=== PATIENT | female | born 1955 | race Caucasian/White ===

== ENCOUNTER → 2016-08-07 | Outpatient (CLI) | payer OTHER ==
[2016-08-07 20:47] LABS: ALT 31 U/L (9-52); AST 24 U/L (14-36); Alkaline Phosphatase 74 U/L (38-126); Anion Gap 13 mmol/L; Blood Urea Nitrogen 21 mg/dL (7-17); Calcium 9.7 mg/dL (8.4-10.2); Carbon Dioxide 25 mmol/L (22-30); Chloride 101 mmol/L (98-107); Cholesterol 182 mg/dL (<200); Glucose 241 mg/dL (74-99); HDL Cholesterol 37 mg/dL (40-60); Non-African American GFR(MDRD) 54 (>60 ml/min/1.73 sqM); Potassium 4.2 mmol/L (3.5-5.1); Sodium 139 mmol/L (137-145); Total Bilirubin 0.6 mg/dL (0.2-1.3); Total Protein 7.8 g/dL (6.3-8.2); Triglycerides 335 mg/dL (<150)
[2016-08-07 21:22] LABS: Hemoglobin A1C 8.4 % (4.2-6.1)
== END | disposition home or self-care (01) ==
LOC: MMGSC 11:10
PROVIDERS: ATTEND Family Medicine
DX: E11.9 Type 2 diabetes mellitus without complications (principal); E78.5 Hyperlipidemia, unspecified
CPT/HCPCS: 36415; 80053; 80061; 82043; 83036

== ENCOUNTER → 2017-08-19 | Outpatient (CLI) | payer OTHER ==
[2017-08-19 18:27] LABS: Basophils % (A) 0 %; Eosinophils # (A) 0.2 k/uL (0-0.7); Eosinophils % (A) 3 %; HCT 38.9 % (34.0-46.0); HGB 12.8 gm/dL (11.4-16.0); Lymphocytes # (A) 1.6 k/uL (1.0-4.8); Lymphocytes % (A) 27 %; MCH 29.1 pg (25.0-35.0); MCHC 32.9 g/dL (31.0-37.0); MCV 88.7 fL (80.0-100.0); Mean Platelet Volume 8.4; Monocytes # (A) 0.3 k/uL (0-1.0); Monocytes % (A) 6 %; Neutrophils # (A) 3.8 k/uL (1.3-7.7); Neutrophils % (A) 63 %; Platelet Count 246 k/uL (150-450); RBC 4.38 m/uL (3.80-5.40); RDW 12.6 % (11.5-15.5)
[2017-08-19 18:33] LABS: Albumin 4.2 g/dL (3.5-5.0); Calcium 9.5 mg/dL (8.4-10.2); Total Bilirubin 0.4 mg/dL (0.2-1.3); Total Protein 7.4 g/dL (6.3-8.2)
[2017-08-20 02:07] LABS: Hemoglobin A1C 10.9 % (4.0-6.0)
== END | disposition home or self-care (01) ==
LOC: MMGSC 09:21
PROVIDERS: ATTEND Family Medicine
DX: E11.9 Type 2 diabetes mellitus without complications (principal); I10 Essential (primary) hypertension; E78.5 Hyperlipidemia, unspecified
CPT/HCPCS: 36415; 80053; 80061; 82043; 82570; 83036; 84443; 85025

== ENCOUNTER → 2017-09-10 | Outpatient (CLI) | payer OTHER ==
--- NOTE | 2017-09-10 10:14 | FL ---
EXAMINATION TYPE: FL UGI air DATE OF EXAM: 09/10/2017 COMPARISON: NONE HISTORY: Reflux, nausea, vomiting and dysphagia TECHNIQUE: A double contrast UGI study is performed. Pt given 2oz EZHD,2oz EZ Paque, 1pjg EZGas. 1.5 4min fluoro time with 39 images saved. FINDINGS: The esophagus shows normal motility and emptying into the stomach. No stricture is identified. A smal l hiatal hernia is present with real-time visualization of moderate reflux of contrast from the hiata l hernia to the mid thoracic esophagus. Once the contrast passes the diaphragmatic hiatus into the ga stric fundus no reflux was visualized with the Valsalva maneuver in the gravity independent position. The stomach shows normal distensibility, peristalsis, and mucosal folds. No evidence of any mass or ulcer disease. The duodenal bulb, sweep, and proximal small bowel loops are unremarkable. IMPRESSION: Small hiatal hernia with reflux of contrast to the level of mid thoracic esophagus (moder ate grade) from stasis of residual contrast within the hiatal hernia.
== END ==
LOC: RADFLMAIN 08:58
PROVIDERS: ATTEND Family Medicine
DX: K44.9 Diaphragmatic hernia without obstruction or gangrene (principal); R13.10 Dysphagia, unspecified
CPT/HCPCS: 74246

== ENCOUNTER → 2017-10-22 | Outpatient (CLI) | payer OTHER ==
--- NOTE | 2017-10-25 11:05 | MM ---
Reason for exam: screening (asymptomatic). Last mammogram was performed 2 years and 2 months ago. History: Patient is postmenopausal and has history of colon cancer at age 40. Family history of breast cancer in cousin. Physical Findings: A clinical breast exam by your physician is recommended on an annual basis and results should be correlated with mammographic findings. MG Screening Mammo w CAD Bilateral CC and MLO view(s) were taken. Prior study comparison: August 28, 2015, bilateral MG screening mammo w CAD. November 25, 2011, bilateral digital screening mammo w/CAD. There are scattered fibroglandular densities. Finding: There are typically benign round, skin calcifications in both breasts. No significant changes in finding since August 28, 2015 and November 25, 2011. ASSESSMENT: Benign, BI-RAD 2 RECOMMENDATION: Routine screening mammogram of both breasts in 1 year.
== END | disposition home or self-care (01) ==
LOC: RADMAMWWP 10:17
PROVIDERS: ATTEND Family Medicine
DX: Z12.31 Encounter for screening mammogram for malignant neoplasm of breast (principal)
CPT/HCPCS: 77067

== ENCOUNTER → 2017-11-22 | Outpatient (CLI) | payer OTHER ==
[2017-11-22 12:35] LABS: Albumin 4.6 g/dL (3.5-5.0); Potassium 4.2 mmol/L (3.5-5.1); Total Bilirubin 0.3 mg/dL (0.2-1.3); Total Protein 7.7 g/dL (6.3-8.2)
[2017-11-22 21:15] LABS: Hemoglobin A1C 6.2 % (4.0-6.0)
== END | disposition home or self-care (01) ==
LOC: LABWHC1 11:45
PROVIDERS: ATTEND Internal Medicine
DX: E55.9 Vitamin D deficiency, unspecified (principal); E11.65 Type 2 diabetes mellitus with hyperglycemia; E78.5 Hyperlipidemia, unspecified
CPT/HCPCS: 36415; 80053; 80061; 82306; 83036

== ENCOUNTER → 2018-03-15 | Outpatient (CLI) | payer OTHER ==
[2018-03-15 21:45] LABS: Hemoglobin A1C 5.7 % (4.0-6.0)
[2018-03-16 11:39] LABS: Albumin 4.6 g/dL (3.80-4.90); Anion Gap 14.1 mmol/L (4.00-12.00); Calcium 9.6 mg/dL (8.7-10.3); Carbon Dioxide 20.9 mmol/L (21.6-31.8); Globulin 2.3 g/dL (2.1-3.7); Potassium 4.1 mmol/L (3.5-5.5); Total Bilirubin 0.3 mg/dL (0.2-1.2); Total Protein 6.9 g/dL (6.2-8.2)
== END | disposition home or self-care (01) ==
LOC: LABWHC1 14:54
PROVIDERS: ATTEND Internal Medicine
DX: E11.65 Type 2 diabetes mellitus with hyperglycemia (principal); E11.22 Type 2 diabetes mellitus with diabetic chronic kidney disease; N18.3 Chronic kidney disease, stage 3 (moderate)
CPT/HCPCS: 36415; 80053; 83036

== ENCOUNTER → 2018-05-10 | Day surgery (SDC) | payer OTHER ==
[2018-05-05 12:47] VITALS: BMI 26.9
[~2018-05-10] MED LIST: LACTATED RINGERS 1,000 ML IV SCH; LIDOCAINE 1% 20 ML VIAL (10MG/ML) FOR IV START INTRADERMA PRN; PROPOFOL 10 MG/ML 20 ML VIAL IV ONE
[2018-05-10 08:42] VITALS: RESP 16; TEMP 97.7
[2018-05-10 08:48] LABS: Glucose,Whole Blood 100 mg/dL (75-99)
--- NOTE | 2018-05-10 09:02 | P.GSHP ---
History of Present Illness H&P Date: 05/10/18 Chief Complaint: GERD, dysphagia This is a 63-year-old female with a history of a hiatal hernia. Patient's complaints of dysphagia. Her recent esophagram shows evidence of a hiatal hernia and reflux to the level of the mid esophagus. Past Medical History Past Medical History: Cancer, Diabetes Mellitus, GERD/Reflux, Hyperlipidemia, Hypertension, Osteoarthritis (OA) Additional Past Medical History / Comment(s): COLON CANCER History of Any Multi-Drug Resistant Organisms: None Reported Past Surgical History: Adenoidectomy, Bowel Resection, Cholecystectomy, Tubal Ligation Additional Past Surgical History / Comment(s): COLONOSCOPY Past Anesthesia/Blood Transfusion Reactions: Motion Sickness Smoking Status: Never smoker - Past Family History Mother Family Medical History: Cancer Additional Family Medical History / Comment(s): LUNG CANCER Medications and Allergies Home Medications Medication Instructions Recorded Confirmed Type Aspirin 81 mg PO DAILY 08/23/15 05/05/18 History Citalopram Hydrobromide [CeleXA] 20 mg PO DAILY 08/23/15 05/05/18 History Lisinopril-Hctz 20-25 mg 1 tab PO DAILY 08/23/15 05/05/18 History [Zestoretic 20-25] Lovastatin [Mevacor] 40 mg PO HS 08/23/15 05/05/18 History Ranitidine HCl [Zantac] 300 mg PO DAILY 08/23/15 05/05/18 History clonazePAM [KlonoPIN] 0.5 mg PO DAILY 08/23/15 05/05/18 History metFORMIN HCL 1,000 mg PO DAILY 08/23/15 05/05/18 History Ergocalciferol [Vitamin D2] 50,000 unit PO TH 05/05/18 05/05/18 History Gabapentin [Neurontin] 600 mg PO BID 05/05/18 05/05/18 History Pioglitazone [Actos] 30 mg PO DAILY 05/05/18 05/05/18 History Allergies Allergy/AdvReac Type Severity Reaction Status Date / Time No Known Allergies Allergy Verified 05/10/18 08:40 Surgical - Exam Vital Signs Temp Pulse Resp BP Pulse Ox 97.7 F 84 16 98/55 99 05/10/18 08:41 05/10/18 08:41 05/10/18 08:41 05/10/18 08:41 05/10/18 08:41 - General well developed, well nourished, no distress - Eyes PERRL - ENT normal pinna - Neck no masses - Respiratory normal expansion - Cardiovascular Rhythm: regular - Abdomen Abdomen: soft, non tender Results - Labs Abnormal Lab Results - Last 24 Hours (Table) 05/10/18 Range/Units 08:45 POC Glucose (mg/dL) 100 H (75-99) mg/dL Assessment and Plan Assessment: Dysphagia History of hiatal hernia We'll perform laparoscopic Uriah fundal plication.
--- NOTE | 2018-05-10 09:15 | P.OP ---
Date of Procedure: 05/10/18 Preoperative Diagnosis: Dysphagia Postoperative Diagnosis: Antral gastritis Small hiatal hernia Mild esophagitis Procedure(s) Performed: EGD Anesthesia: MAC Surgeon: Davi Meyers Estimated Blood Loss (ml): 5 Pathology: other (Antrum, esophagus) Condition: stable Disposition: PACU Description of Procedure: The patient's placed on the endoscopy table in the lateral position. She received IV sedation. The gastroscope placed oropharynx passed in the esophagus and into the stomach. Scope was then placed through the pylorus. The first and second portion of the duodenum appeared normal. Scope summer back the antrum and this appeared mildly inflamed. A biopsy was performed. The scope was retroflexed and the remainder of the stomach appeared normal. There was a small hiatal hernia. The GE junction was at 39 7 is. The distal esophagus appeared mildly inflamed a biopsies performed. The proximal esophagus appeared normal. Scope was withdrawn for patient.
[2018-05-10 09:32] VITALS: BP 85/61; PULSE 84
== END ==
LOC: ORWHC2ENDO 08:14
PROVIDERS: ATTEND Surgery
DX: K29.50 Unspecified chronic gastritis without bleeding (principal); K44.9 Diaphragmatic hernia without obstruction or gangrene; K21.0 Gastro-esophageal reflux disease with esophagitis; E11.9 Type 2 diabetes mellitus without complications; E78.5 Hyperlipidemia, unspecified; I10 Essential (primary) hypertension; M19.90 Unspecified osteoarthritis, unspecified site; Z79.84 Long term (current) use of oral hypoglycemic drugs; Z79.82 Long term (current) use of aspirin; Z79.899 Other long term (current) drug therapy; Z87.19 Personal history of other diseases of the digestive system; Z85.038 Personal history of other malignant neoplasm of large intestine; Z90.49 Acquired absence of other specified parts of digestive tract; Z98.51 Tubal ligation status
CPT/HCPCS: 88305; 88312; 43239; J2704

== ENCOUNTER 2018-05-25 09:54 | Observation (INO) | payer OTHER ==
[2018-05-24 08:37] VITALS: BMI 25.9
[~2018-05-25 09:54] MED LIST changes: +DEXAMETHASONE SOD PHOSPHATE 10 MG/ML 1 ML VIAL IV ONE; +HEPARIN SODIUM,PORCINE 5,000 UNIT/ML 1 ML VIAL SQ ONE; -LIDOCAINE 1% 20 ML VIAL (10MG/ML) FOR IV START INTRADERMA PRN; +MIDAZOLAM (PF) 2 MG/2 ML VIAL IV PRN; +ONDANSETRON 4 MG/2 ML VIAL IVP ONE; -PROPOFOL 10 MG/ML 20 ML VIAL IV ONE; +SCOPOLAMINE 1.5MG/72HR PATCH TRANSDERM ONE; +ceFAZolin IN SWFI 2 GM/20 ML SYRINGE IVP ONE
--- NOTE | 2018-05-25 10:23 | P.GSHP ---
History of Present Illness H&P Date: 05/25/18 Chief Complaint: GERD This is a 63-year-old female referred from Dr. Laurence Paredes. MThe patient has had long-standing problems with reflux esophagitis. The patient underwent recent EGD is found have evidence of esophagitis. Patient has been well informed on the procedure of laparoscopic Uriah fundoplication. The patient is aware the risk of the conversion to the open procedure, risk of injury to the stomach, liver and spleen. The patient is also a risk of recurrent GERD and dysphagia symptoms. The patient understands there is a postoperative diet of full liquids for 2 weeks after surgery. Past Medical History Past Medical History: Cancer, Diabetes Mellitus, GERD/Reflux, Hyperlipidemia, Hypertension, Osteoarthritis (OA), Renal Disease Additional Past Medical History / Comment(s): hiatal hernia,COLON CANCER-October 1995-no radiation or chemo,something is wrong with my kidneys-CKD stage 3", chronic arm pain and left flank pain. History of Any Multi-Drug Resistant Organisms: None Reported Past Surgical History: Adenoidectomy, Bowel Resection, Cholecystectomy, Tubal Ligation Additional Past Surgical History / Comment(s): COLONOSCOPY Past Anesthesia/Blood Transfusion Reactions: Motion Sickness Additional Past Anesthesia/Blood Transfusion Reaction / Comment(s): no hx blood transfusion Smoking Status: Never smoker - Past Family History Mother Family Medical History: Cancer Additional Family Medical History / Comment(s): LUNG CANCER Medications and Allergies Home Medications Medication Instructions Recorded Confirmed Type Aspirin 81 mg PO DAILY 08/23/15 05/24/18 History Citalopram Hydrobromide [CeleXA] 20 mg PO QA 08/23/15 05/24/18 History Lisinopril-Hctz 20-25 mg 1 tab PO QA 08/23/15 05/24/18 History [Zestoretic 20-25] Lovastatin [Mevacor] 40 mg PO HS 08/23/15 05/24/18 History Ranitidine HCl [Zantac] 300 mg PO QAM 08/23/15 05/24/18 History clonazePAM [KlonoPIN] 0.5 mg PO QAM 08/23/15 05/24/18 History metFORMIN HCL 1,000 mg PO DAILY 08/23/15 05/24/18 History Ergocalciferol [Vitamin D2] 50,000 unit PO TH 05/05/18 05/24/18 History Gabapentin [Neurontin] 600 mg PO BID 05/05/18 05/24/18 History Pioglitazone [Actos] 30 mg PO DAILY 05/05/18 05/24/18 History Allergies Allergy/AdvReac Type Severity Reaction Status Date / Time No Known Allergies Allergy Verified 05/24/18 08:20 Surgical - Exam - General well developed, well nourished, no distress - Eyes PERRL - ENT normal pinna - Neck no masses - Respiratory normal expansion - Cardiovascular Rhythm: regular - Abdomen Abdomen: soft, non tender Assessment and Plan Assessment: GERD. We'll perform laparoscopic Uriah fundal plication.
[2018-05-25 10:48] LABS: Glucose,Whole Blood 80 mg/dL (75-99)
[2018-05-25] MEDS ORDERED: LIDOCAINE 1% 20 ML VIAL (10MG/ML) FOR IV START INTRADERMA ONE (10:48)
[2018-05-25] MEDS ORDERED: BUPIVACAIN-EPI 0.5%-1:200,000 30 ML VIAL SQ ONE ×3 (11:01→11:52)
[2018-05-25 11:07] LABS: HCT 35.3 % (34.0-46.0); HGB 11.4 gm/dL (11.4-16.0); MCHC 32.3 g/dL (31.0-37.0); MCV 92.9 fL (80.0-100.0); Mean Platelet Volume 6.8; Platelet Count 225 k/uL (150-450); RDW 12.2 % (11.5-15.5); WBC 4.9 k/uL (3.8-10.6)
[2018-05-25] MEDS ORDERED: PHENYLEPHRINE-0.9% NACL SYG 1 MG/10 ML SYRINGE ONE (11:15)
[2018-05-25] MEDS ORDERED: SUCCINYLCHOLINE CHLORIDE 100 MG/5 ML SYR IV ONE (11:15)
[2018-05-25] MEDS ORDERED: ROCURONIUM BROMIDE 10 MG/ML 10 ML VIAL IV ONE (11:15)
[2018-05-25] MEDS ORDERED: ePHEDrine SULFATE/0.9% NACL/PF 50 MG/5 ML SYRINGE IV ONE (11:15)
[2018-05-25] MEDS ORDERED: NEOSTIGMINE 1 MG/ML 10 ML VIAL ONE (11:15)
[2018-05-25] MEDS ORDERED: GLYCOPYRROLATE 0.2 MG/ML 2 ML VIAL ONE (11:15)
[2018-05-25] MEDS ORDERED: fentaNYL (PF) 50 MCG/ML 2 ML AMP ONE (11:15)
[2018-05-25] MEDS ORDERED: LIDOCAINE 1% INJ 10MG/ML (20 ML MDV) ONE (11:15)
[2018-05-25] MEDS ORDERED: MIDAZOLAM 2 MG/2 ML VIAL ONE (11:15)
[2018-05-25] MEDS ORDERED: PROPOFOL 10 MG/ML 20 ML VIAL IV ONE (11:15)
[2018-05-25 11:18] LABS: Potassium 4.1 mmol/L (3.5-5.1)
[2018-05-25] MEDS ORDERED: LACTATED RINGERS 1,000 ML IV ONE (12:30)
[2018-05-25] MEDS: HYDROmorphone 0.5 MG/0.5 ML SYRINGE IVP PRN ×2 (13:19→13:38)
--- NOTE | 2018-05-25 13:47 | P.OP ---
Date of Procedure: 05/25/18 Preoperative Diagnosis: GERD Postoperative Diagnosis: GERD Procedure(s) Performed: Laparoscopic lysis of adhesions Laparoscopic Uriah fundoplication Anesthesia: ALLYSON Surgeon: Davi Meyers Estimated Blood Loss (ml): 20 Pathology: none sent Condition: stable Disposition: PACU Description of Procedure: The patient was placed on the operating table in the supine position. The patient received general anesthesia. And was placed in dorsal lithotomy position. The patient was prepped and draped in the usual sterile fashion. The skin incision sites were anesthetized with 1% local Xylocaine. The skin was incised in the left periumbilical area and then using a blade less 5 mm trocar under direct visualization panel cavity was entered. Upon entering the peritoneal cavity there were dense adhesions. At this point a skin incision was made near the entry point and then using electrocautery the subcutaneous tissue divided. The fascia was opened and the trocar position was examined. The trocar appeared to be within an omental adhesion. Using cautery the adhesions taken down. There is no evidence of any injury to the bowel. The fascia was closed with 0 Ethibond suture. Skin was closed interrupted 3-0 Monocryl suture. The abdomen was then insufflated. After adequate insufflation the laparoscope was then placed into the peritoneal cavity. Next a 5 mm trochars placed in the right epigastric position. Another 5 millimeter trocar the right lateral position. Another 5 millimeter trocar in the left lateral position a 5 mm trocar is placed in the left epigastric position. And then the initial 5 mm trocar was exchanged for a 10 mm trocar. The left lateral lobe liver was retracted. The hernia was seen. The crural defect was then dissected using the Harmonic scissors device. A 360 crural dissection was performed the esophagus stomach was reduced back into the peritoneal Cavity. The crural defect was then closed using 2-0 Ethibond suture. Next the fundus of the stomach was mobilized using the Jet scissors device. and then a 58-Ind[place]ian bougie dilator was placed oropharynx passed into the esophagus and stomach the fundal plication wrap was then performed by grasping the fundus posteriorly and bringing it around the esophagus and stomach fundoplication was then performed using 2-0 Ethibond suture. Care was taken that the fundal location rested over top of the intra- abdominal esophagus. There was no injury seen to the stomach or esophagus. The dilator was then withdrawn. The abdomen was irrigated there is no bleeding seen. The trochars were then withdrawn and then skin incision sites were closed using 3-0 Monocryl suture Steri-Strips are applied. Patient thought procedure well and sent to recovery room in stable condition.
[2018-05-25] MEDS: HYDROmorphone 1 MG/ML 1 ML SYRINGE IVP PRN (17:53)
[2018-05-25] MEDS: METOCLOPRAMIDE 5 MG/ML 2 ML VIAL IVP SCH ×2 (18:04→23:21)
[2018-05-25] MEDS: D5-0.45% NACL WITH KCL 20MEQ/L 1,000 ML IV SCH ×2 (18:34→22:09)
[2018-05-25] MEDS: LACTATED RINGERS 1,000 ML IV SCH ×2 (20:06→21:06)
[2018-05-26] MEDS: D5-0.45% NACL WITH KCL 20MEQ/L 1,000 ML IV SCH (05:12)
[2018-05-26] MEDS: METOCLOPRAMIDE 5 MG/ML 2 ML VIAL IVP SCH ×3 (05:13→18:33)
[2018-05-26] MEDS ORDERED: ENOXAPARIN 40 MG/0.4 ML SYRINGE SQ SCH (09:00)
[2018-05-26] MEDS: ACETAMINOPHEN TAB 325 MG TAB PO PRN ×2 (09:33→15:49)
[2018-05-26] MEDS: HYDROmorphone 1 MG/ML 1 ML SYRINGE IVP PRN (10:26)
--- NOTE | 2018-05-26 11:09 | FL ---
SINGLE CONTRAST ESOPHAGRAM: CLINICAL HISTORY: 63-year-old female status post Uriah fundoplication, rule out leak/obstruction TECHNIQUE: Single contrast exam performed with 50 ml Isovue-370 contrast. Total fluoroscopy time: 46 seconds. Total images: 20. FINDINGS: The patient swallowed oral contrast without difficulty or delay. Esophageal peristalsis shows modera te tertiary peristaltic contractions during a large swallow. There is satisfactory passage of contrast from the esophagus into the stomach status post Uriah fund oplication. There is no evidence of contrast extravasation to suggest leak. There is prominent postsurgical free air below the right greater than left hemidiaphragms. IMPRESSION: 1. No evidence of leak or significant obstruction status post Uriah fundoplication. 2. Prominent postsurgical free air below the right greater than left hemidiaphragms. Images available for review.
[2018-05-26 12:20] LABS: Glucose,Whole Blood 147 mg/dL (75-99)
[2018-05-26] MEDS: INSULIN ASPART 100 UNIT/ML 1 ML 10 ML VIAL SQ SCH ×3 (12:26→21:42)
[2018-05-26] MEDS: CITALOPRAM HYDROBROMIDE 20 MG TAB PO SCH (12:27)
[2018-05-26] MEDS ORDERED: LACTATED RINGERS 1,000 ML IV SCH (13:30)
[2018-05-26] MEDS ORDERED: Acetaminophen-Codeine 300-30mg TAB PO PRN (14:44)
--- NOTE | 2018-05-26 15:05 | P.PN ---
Subjective Progress Note Date: 05/26/18 HISTORY OF PRESENT ILLNESS: 63-year-old female who underwent laparoscopic Uriah fundoplication and lysis of adhesions. POD #1. Patient underwent esophagram this morning which was negative for evidence of leak or significant obstruction. The patient is tolerating clear liquid diet. Pain is tolerable at this time. She did have a dose of Dilaudid this morning which her blood pressure did not tolerated. Temp 101.9. PHYSICAL EXAM: VITAL SIGNS: Currently stable. GENERAL: Well-developed in no acute distress. HEENT: No sclera icterus. Extraocular movements grossly intact. Moist buccal mucosa. Head is atraumatic, normocephalic. Hears conversational speech. No nasal drainage. NECK: Supple without lymphadenopathy. CHEST: Non-labored respirations and equal bilateral excursions. CARDIOVASCULAR: Regular rate with regular rhythm. Palpable 2+ radial pulses. ABDOMEN: Soft. Nondistended. Incision sites clean and dry without drainage. MUSCULOSKELETAL: No clubbing, cyanosis or edema. NEUROLOGIC: No focal or lateralizing signs. Cranial nerves II through XII grossly intact. PSYCH: Appropriate affect. Alert and oriented to person, place and time. SKIN: Well perfused. Good skin turgor. ASSESSMENT: 1. GERD, status post laparoscopic Uriah fundoplication and lysis of adhesions 2. Fever, likely secondary to postop atelectasis PLAN: 1. Discontinue dilaudid 2. Tylenol #3 for pain PRN 3. LR at 100cc/hr. 1 liter bolus now 4. Repeat labs in AM 5. Continue clear liquid diet 6. Incentive spirometry 7. Patient encouraged to increase activity. patient needs to be ambulating in the halls Nurse practitioner note has been reviewed by physician. Signing provider agrees with the documented findings, assessment, and plan of care. Objective - Vital Signs Vital signs: Vital Signs Temp 100.7 F H 05/26/18 12:33 Pulse 103 H 05/26/18 12:00 Resp 17 05/26/18 12:00 BP 88/42 05/26/18 11:50 Pulse Ox 94 L 05/26/18 12:00 Intake & Output 05/25/18 05/26/18 05/26/18 18:59 06:59 18:59 Intake Total 1440 3000 Output Total 15 1240 700 Balance 1425 1760 -700 Weight 64.41 kg Intake: IV 1400 Intake, IV Titration 3000 Amount D5-0.45% NaCl with KCl 1000 20Meq/l 1,000 ml @ 125 mls/hr IV .Q8H YONY Rx#: [id number] Lactated Ringers 1,000 ml 2000 @ 999 mls/hr IV .Q1H1M YONY Rx#:[id number] Oral 40 Output: Urine 1240 700 Estimated Blood Loss 15 Other: # Voids 1 - Labs CBC & Chem 7: 05/25/18 10:55 05/25/18 10:55 Labs: Abnormal Lab Results - Last 24 Hours (Table) 05/26/18 Range/Units 12:17 POC Glucose (mg/dL) 147 H (75-99) mg/dL
[2018-05-26] MEDS: LACTATED RINGERS 1,000 ML IV SCH (15:38)
[2018-05-26 17:18] LABS: Glucose,Whole Blood 96 mg/dL (75-99)
[2018-05-26] MEDS ORDERED: ATORVASTATIN 10 MG TAB PO SCH (21:00)
[2018-05-26 21:37] LABS: Glucose,Whole Blood 101 mg/dL (75-99)
[2018-05-27] MEDS: METOCLOPRAMIDE 5 MG/ML 2 ML VIAL IVP SCH ×2 (00:03→06:11)
[2018-05-27] MEDS: LACTATED RINGERS 1,000 ML IV SCH (00:04)
[2018-05-27 06:56] LABS: Basophils % (A) 0 %; Eosinophils # (A) 0.1 k/uL (0-0.7); Eosinophils % (A) 2 %; HCT 27.4 % (34.0-46.0); Lymphocytes # (A) 0.8 k/uL (1.0-4.8); Lymphocytes % (A) 24 %; MCH 30.9 pg (25.0-35.0); MCHC 33.5 g/dL (31.0-37.0); MCV 92.5 fL (80.0-100.0); Mean Platelet Volume 6.8; Monocytes # (A) 0.3 k/uL (0-1.0); Monocytes % (A) 7 %; Neutrophils # (A) 2.3 k/uL (1.3-7.7); Neutrophils % (A) 65 %; Platelet Count 149 k/uL (150-450); RBC 2.97 m/uL (3.80-5.40); RDW 12.4 % (11.5-15.5); WBC 3.6 k/uL (3.8-10.6)
[2018-05-27 07:00] LABS: Albumin 2.9 g/dL (3.5-5.0); Calcium 8.4 mg/dL (8.4-10.2); Potassium 4.1 mmol/L (3.5-5.1); Total Bilirubin 0.4 mg/dL (0.2-1.3); Total Protein 5.4 g/dL (6.3-8.2)
[2018-05-27 07:03] LABS: HGB 9.2 gm/dL (11.4-16.0)
[2018-05-27 07:51] LABS: Glucose,Whole Blood 100 mg/dL (75-99)
[2018-05-27] MEDS: CITALOPRAM HYDROBROMIDE 20 MG TAB PO SCH (08:51)
[2018-05-27] MEDS ORDERED: ASPIRIN 81 MG PO SCH (09:00)
[2018-05-27] MEDS ORDERED: clonazePAM 0.5 MG TAB PO SCH (09:00)
--- NOTE | 2018-05-27 09:24 | P.DS ---
Providers Date of admission: 05/26/18 20:16 Expected date of discharge: 05/27/18 Attending physician: Davi Meyers Primary care physician: Laurence Fajardo Hospital Course: 63-year-old female who underwent laparoscopic Uriah fundoplication and lysis of adhesions. Patient doing well postoperatively. Patient underwent esophagram which was negative for evidence of leak or significant obstruction. The patient is tolerating clear liquid diet. denies nausea or vomiting. Pain is tolerable at this time. She is stable for discharge home today. Please see EMR for further hospital course details. Discharge Diagnosis:: 1. GERD, status post laparoscopic Uriah fundoplication and lysis of adhesions 2. Fever, likely secondary to postop atelectasis Nurse practitioner note has been reviewed by physician. Signing provider agrees with the documented findings, assessment, and plan of care. Plan - Discharge Summary Discharge Rx Participant: Yes New Discharge Prescriptions: New Acetaminophen-Codeine 300-30mg [Tylenol w/codeine #3] 1 each PO Q4HR PRN #18 tab PRN Reason: Pain Docusate [Colace] 100 mg PO BID #30 capsule Continue clonazePAM [KlonoPIN] 0.5 mg PO QAM Ranitidine HCl [Zantac] 300 mg PO QAM metFORMIN HCL 1,000 mg PO DAILY Lovastatin [Mevacor] 40 mg PO HS Lisinopril-Hctz 20-25 mg [Zestoretic 20-25] 1 tab PO QAM Citalopram Hydrobromide [CeleXA] 20 mg PO QAM Aspirin 81 mg PO DAILY Pioglitazone [Actos] 30 mg PO DAILY Ergocalciferol [Vitamin D2 (DRISDOL)] 50,000 unit PO TH Gabapentin [Neurontin] 600 mg PO BID Discharge Medication List Aspirin 81 mg PO DAILY 08/23/15 [History] Citalopram Hydrobromide [CeleXA] 20 mg PO QAM 08/23/15 [History] Lisinopril-Hctz 20-25 mg [Zestoretic 20-25] 1 tab PO QAM 08/23/15 [History] Lovastatin [Mevacor] 40 mg PO HS 08/23/15 [History] Ranitidine HCl [Zantac] 300 mg PO QAM 08/23/15 [History] clonazePAM [KlonoPIN] 0.5 mg PO QAM 04/29/16 [History] metFORMIN HCL 1,000 mg PO DAILY 08/23/15 [History] Ergocalciferol [Vitamin D2 (DRISDOL)] 50,000 unit PO TH 05/05/18 [History] Gabapentin [Neurontin] 600 mg PO BID 05/05/18 [History] Pioglitazone [Actos] 30 mg PO DAILY 05/05/18 [History] Acetaminophen-Codeine 300-30mg [Tylenol w/codeine #3] 1 each PO Q4HR PRN #18 tab 05/27/18 [Rx] Docusate [Colace] 100 mg PO BID #30 capsule 05/27/18 [Rx] Follow up Appointment(s)/Referral(s): Davi Meyers MD [STAFF PHYSICIAN] - 1 Week Activity/Diet/Wound Care/Special Instructions: No driving while taking pain medication No lifting over 10 pounds You may shower. No soaking or tub baths Very light activity until you are reevaluated at your follow up appointment with your surgeon Clear liquid diet for two weeks
[2018-05-27 09:46] VITALS: BP 134/85; PULSE 77; RESP 16; TEMP 97.5
[2018-05-27 14:46] LABS: Hemoglobin A1C 5.4 % (4.0-6.0)
== END 2018-05-27 10:49 | disposition home or self-care (01) ==
LOC: OR 09:54 → 6PED 12:36 → OR 05-26 21:35
PROVIDERS: ADMIT Surgery; ATTEND Surgery
DX: K21.0 Gastro-esophageal reflux disease with esophagitis (principal); K66.0 Peritoneal adhesions (postprocedural) (postinfection); R50.82 Postprocedural fever; I12.9 Hypertensive chronic kidney disease with stage 1 through stage 4 chronic kidney disease, or unspecified chronic kidney disease; E11.22 Type 2 diabetes mellitus with diabetic chronic kidney disease; N18.3 Chronic kidney disease, stage 3 (moderate); E78.5 Hyperlipidemia, unspecified; M19.90 Unspecified osteoarthritis, unspecified site; Z79.82 Long term (current) use of aspirin; Z79.84 Long term (current) use of oral hypoglycemic drugs; Z79.899 Other long term (current) drug therapy; Z85.038 Personal history of other malignant neoplasm of large intestine; K44.9 Diaphragmatic hernia without obstruction or gangrene; Z90.49 Acquired absence of other specified parts of digestive tract; Z98.51 Tubal ligation status; Z80.1 Family history of malignant neoplasm of trachea, bronchus and lung
CPT/HCPCS: 80053; 82565; 84132; 84520; 85025; 85027; 83036; 74210; 43280; 49329; G0378 ×2; J2250; J2710; J2765 ×3; J2001; J1650; J3010; J1170 ×3; J2370; J0330; J2704; Q9967

== ENCOUNTER → 2018-08-15 | Outpatient (CLI) | payer OTHER ==
--- NOTE | 2018-08-16 10:19 | MM ---
Reason for exam: screening (asymptomatic). Last mammogram was performed 10 months ago. History: Patient is postmenopausal and has history of colon cancer at age 40. Family history of breast cancer in cousin. Physical Findings: A clinical breast exam by your physician is recommended on an annual basis and results should be correlated with mammographic findings. MG Screening Mammo w CAD Bilateral CC and MLO view(s) were taken. Prior study comparison: October 22, 2017, bilateral MG screening mammo w CAD. August 28, 2015, bilateral MG screening mammo w CAD. The breast tissue is heterogeneously dense. This may lower the sensitivity of mammography. Stable benign calcifications. There is no discrete abnormality. No significant changes when compared with prior studies. ASSESSMENT: Benign, BI-RAD 2 RECOMMENDATION: Routine screening mammogram of both breasts in 1 year.
== END | disposition home or self-care (01) ==
LOC: RADMAMWWP 10:06
PROVIDERS: ATTEND Family Medicine
DX: Z12.31 Encounter for screening mammogram for malignant neoplasm of breast (principal)
CPT/HCPCS: 77067

== ENCOUNTER 2018-12-13 23:28 | Emergency (ER) | payer OTHER ==
[2018-12-14 00:10] LABS: Amorphous Sediment,Urine Occasional /hpf; Appearance,Urine Cloudy (Clear); Bilirubin,Urine Negative (Negative); Blood,Urine Negative (Negative); Color,Urine Yellow; Glucose,Urine (UA) Negative (Negative); Hyaline Casts,Urine 3 /lpf (0-2); Ketones,Urine Negative (Negative); Leukocyte Esterase,Urine Negative (Negative); Mucus,Urine Rare /hpf; Nitrite,Urine Negative (Negative); PH, Urine 8.5 (5.0-8.0); Protein,Urine Trace (Negative); Specific Gravity,Urine 1.016 (1.001-1.035); Squamous Epithelial Cell,Urine <1 /hpf (0-4); WBC,Urine 5 /hpf (0-5)
[2018-12-14] MEDS ORDERED: ONDANSETRON 4 MG/2 ML VIAL IVP STA (01:08)
--- NOTE | 2018-12-14 01:35 | ED ---
Abdominal Pain HPI - General Chief Complaint: Abdominal Pain Stated Complaint: Abdominal Pain Time Seen by Provider: 12/14/18 01:02 Source: patient Mode of arrival: ambulatory Limitations: no limitations - History of Present Illness Initial Comments: 's patient is a 63-year-old woman who presents to be evaluated for periumbilical pain that had developed in the afternoon probably around 40 5 PM. She states that it came on spontaneously. It was a cramping and initially was constant. It became severe. She did not note any worsening or relieving factors. The patient also had episode of vomiting and that is why she came to be evaluated. The patient states that the pain has subsequently improved, and she declines analgesia at initial history and physical. There were no other associated symptoms. MD Complaint: abdominal pain Onset/Timin -: hour(s) Location: periumbilical Radiation: none Migration to: no migration Severity: severe Quality: cramping Consistency: other (Patient has improved) Improves With: nothing Worsens With: nothing Associated Symptoms: nausea, vomiting - Related Data Home Medications Medication Instructions Recorded Confirmed Aspirin 81 mg PO DAILY 08/23/15 05/26/18 Citalopram Hydrobromide [CeleXA] 20 mg PO QAM 08/23/15 05/26/18 Lisinopril-Hctz 20-25 mg 1 tab PO QAM 08/23/15 05/26/18 [Zestoretic 20-25] Lovastatin [Mevacor] 40 mg PO HS 08/23/15 05/26/18 Ranitidine HCl [Zantac] 300 mg PO QAM 08/23/15 05/26/18 clonazePAM [KlonoPIN] 0.5 mg PO QAM 08/23/15 05/26/18 metFORMIN HCL 1,000 mg PO DAILY 08/23/15 05/26/18 Ergocalciferol [Vitamin D2 50,000 unit PO TH 05/05/18 05/26/18 (DRISDOL)] Gabapentin [Neurontin] 600 mg PO BID 05/05/18 05/26/18 Pioglitazone [Actos] 30 mg PO DAILY 05/05/18 05/26/18 Previous Rx's Medication Instructions Recorded Acetaminophen-Codeine 300-30mg 1 each PO Q4HR PRN #18 tab 05/27/18 [Tylenol w/codeine #3] Docusate [Colace] 100 mg PO BID #30 capsule 05/27/18 Allergies Allergy/AdvReac Type Severity Reaction Status Date / Time hydromorphone [From Dilaudid] AdvReac Intermediate Unknown Verified 12/13/18 23:51 Review of Systems ROS Statement: Those systems with pertinent positive or pertinent negative responses have been documented in the HPI. ROS Other: All systems not noted in ROS Statement are negative. Constitutional: Denies: fever, chills Respiratory: Denies: cough, dyspnea Cardiovascular: Denies: chest pain, palpitations, edema Gastrointestinal: Reports: abdominal pain, nausea, vomiting. Denies: diarrhea, constipation, melena, hematochezia Genitourinary: Denies: dysuria, hematuria Musculoskeletal: Denies: back pain Skin: Denies: rash Neurological: Denies: headache Past Medical History Past Medical History: Cancer, Diabetes Mellitus, GERD/Reflux, Hyperlipidemia, Hypertension, Osteoarthritis (OA), Renal Disease Additional Past Medical History / Comment(s): hiatal hernia,COLON CANCER-October 1995-no radiation or chemo,something is wrong with my kidneys-CKD stage 3",chronic arm pain and left flank pain. History of Any Multi-Drug Resistant Organisms: None Reported Past Surgical History: Adenoidectomy, Bowel Resection, Cholecystectomy, Hernia R epair, Tubal Ligation Additional Past Surgical History / Comment(s): COLONOSCOPY Past Anesthesia/Blood Transfusion Reactions: Motion Sickness Additional Past Anesthesia/Blood Transfusion Reaction / Comment(s): no hx blood transfusion Past Psychological History: Anxiety Smoking Status: Never smoker Past Alcohol Use History: None Reported Past Drug Use History: None Reported - Past Family History Mother Family Medical History: Cancer Additional Family Medical History / Comment(s): LUNG CANCER General Exam Limitations: no limitations General appearance: alert, in no apparent distress Head exam: Present: atraumatic, normocephalic Eye exam: Present: normal appearance. Absent: scleral icterus, conjunctival injection ENT exam: Present: normal oropharynx Neck exam: Present: normal inspection Respiratory exam: Present: normal lung sounds bilaterally. Absent: respiratory distress, wheezes, rales, rhonchi, stridor Cardiovascular Exam: Present: regular rate, normal rhythm, normal heart sounds GI/Abdominal exam: Present: soft, tenderness, normal bowel sounds. Absent: distended, guarding, rebound, rigid, mass, pulsatile mass, hernia Extremities exam: Present: normal inspection, normal capillary refill Back exam: Present: normal inspection. Absent: CVA tenderness (R), CVA tenderness (L) Neurological exam: Present: alert Skin exam: Present: warm, dry, intact, normal color. Absent: rash Course Vital Signs 12/13/18 12/14/18 23:47 03:10 Temperature 97.7 F 97.6 F Pulse Rate 98 63 Respiratory 18 19 Rate Blood Pressure 126/57 133/68 O2 Sat by Pulse 100 99 Oximetry Medical Decision Making - Lab Data Result diagrams: 12/14/18 01:42 12/14/18 01:42 Lab Results 12/14/18 12/14/18 12/14/18 Range/Units 00:01 01:42 01:42 WBC 5.3 (3.8-10.6) k/uL RBC 4.21 (3.80-5.40) m/uL Hgb 12.4 (11.4-16.0) gm/dL Hct 38.1 (34.0-46.0) % MCV 90.5 (80.0-100.0) fL MCH 29.5 (25.0-35.0) pg MCHC 32.6 (31.0-37.0) g/dL RDW 12.9 (11.5-15.5) % Plt Count 221 (150-450) k/uL Neutrophils % 65 % Lymphocytes % 26 % Monocytes % 6 % Eosinophils % 1 % Basophils % 0 % Neutrophils # 3.5 (1.3-7.7) k/uL Lymphocytes # 1.4 (1.0-4.8) k/uL Monocytes # 0.3 (0-1.0) k/uL Eosinophils # 0.1 (0-0.7) k/uL Basophils # 0.0 (0-0.2) k/uL Sodium 142 (137-145) mmol/L Potassium 3.4 L (3.5-5.1) mmol/L Chloride 107 (98-107) mmol/L Carbon Dioxide 25 (22-30) mmol/L Anion Gap 10 mmol/L BUN 18 H (7-17) mg/dL Creatinine 1.03 (0.52-1.04) mg/dL Est GFR (CKD-EPI)AfAm 67 (>60 ml/min/1.73 sqM) Est GFR (CKD-EPI)NonAf 58 (>60 ml/min/1.73 sqM) Glucose 94 (74-99) mg/dL Plasma Lactic Acid Julio (0.7-2.0) mmol/L Calcium 9.5 (8.4-10.2) mg/dL Total Bilirubin 0.3 (0.2-1.3) mg/dL AST 20 (14-36) U/L ALT 17 (9-52) U/L Alkaline Phosphatase 40 (38-126) U/L Total Protein 6.8 (6.3-8.2) g/dL Albumin 3.9 (3.5-5.0) g/dL Amylase 42 (30-110) U/L Lipase 61 (23-300) U/L Urine Color Yellow Urine Appearance Cloudy H (Clear) Urine pH 8.5 H (5.0-8.0) Ur Specific [place] 1.016 (1.001-1.035) Urine Protein Trace H (Negative) Urine Glucose (UA) Negative (Negative) Urine Ketones Negative (Negative) Urine Blood Negative (Negative) Urine Nitrite Negative (Negative) Urine Bilirubin Negative (Negative) Urine Urobilinogen 2.0 (<2.0) mg/dL Ur Leukocyte Esterase Negative (Negative) Urine WBC 5 (0-5) /hpf Ur Squamous Epith Cells <1 (0-4) /hpf Amorphous Sediment Occasional H (None) /hpf Hyaline Casts 3 H (0-2) /lpf Urine Mucus Rare H (None) /hpf 12/14/18 Range/Units 01:42 WBC (3.8-10.6) k/uL RBC (3.80-5.40) m/uL Hgb (11.4-16.0) gm/dL Hct (34.0-46.0) % MCV (80.0-100.0) fL MCH (25.0-35.0) pg MCHC (31.0-37.0) g/dL RDW (11.5-15.5) % Plt Count (150-450) k/uL Neutrophils % % Lymphocytes % % Monocytes % % Eosinophils % % Basophils % % Neutrophils # (1.3-7.7) k/uL Lymphocytes # (1.0-4.8) k/uL Monocytes # (0-1.0) k/uL Eosinophils # (0-0.7) k/uL Basophils # (0-0.2) k/uL Sodium (137-145) mmol/L Potassium (3.5-5.1) mmol/L Chloride (98-107) mmol/L Carbon Dioxide (22-30) mmol/L Anion Gap mmol/L BUN (7-17) mg/dL Creatinine (0.52-1.04) mg/dL Est GFR (CKD-EPI)AfAm (>60 ml/min/1.73 sqM) Est GFR (CKD-EPI)NonAf (>60 ml/min/1.73 sqM) Glucose (74-99) mg/dL Plasma Lactic Acid Julio 1.1 (0.7-2.0) mmol/L Calcium (8.4-10.2) mg/dL Total Bilirubin (0.2-1.3) mg/dL AST (14-36) U/L ALT (9-52) U/L Alkaline Phosphatase (38-126) U/L Total Protein (6.3-8.2) g/dL Albumin (3.5-5.0) g/dL Amylase (30-110) U/L Lipase (23-300) U/L Urine Color Urine Appearance (Clear) Urine pH (5.0-8.0) Ur Specific [place] (1.001-1.035) Urine Protein (Negative) Urine Glucose (UA) (Negative) Urine Ketones (Negative) Urine Blood (Negative) Urine Nitrite (Negative) Urine Bilirubin (Negative) Urine Urobilinogen (<2.0) mg/dL Ur Leukocyte Esterase (Negative) Urine WBC (0-5) /hpf Ur Squamous Epith Cells (0-4) /hpf Amorphous Sediment (None) /hpf Hyaline Casts (0-2) /lpf Urine Mucus (None) /hpf Disposition Clinical Impression: Constipation Disposition: HOME SELF-CARE Condition: Fair Instructions (If sedation given, give patient instructions): Constipation (ED) Is patient prescribed a controlled substance at d/c from ED?: No Referrals: Laurence Fajardo MD [Primary Care Provider] - 1-2 days
[2018-12-14 02:08] LABS: Basophils % (A) 0 %; Eosinophils # (A) 0.1 k/uL (0-0.7); Eosinophils % (A) 1 %; HCT 38.1 % (34.0-46.0); HGB 12.4 gm/dL (11.4-16.0); Lymphocytes # (A) 1.4 k/uL (1.0-4.8); Lymphocytes % (A) 26 %; MCH 29.5 pg (25.0-35.0); MCHC 32.6 g/dL (31.0-37.0); MCV 90.5 fL (80.0-100.0); Mean Platelet Volume 7.6; Monocytes # (A) 0.3 k/uL (0-1.0); Monocytes % (A) 6 %; Neutrophils # (A) 3.5 k/uL (1.3-7.7); Neutrophils % (A) 65 %; Platelet Count 221 k/uL (150-450); RBC 4.21 m/uL (3.80-5.40); RDW 12.9 % (11.5-15.5); WBC 5.3 k/uL (3.8-10.6)
--- NOTE | 2018-12-14 02:19 | XR ---
EXAM: XR Abdomen, 1 View CLINICAL HISTORY: ITS.REASON XR Reason: abdominal pain TECHNIQUE: Frontal supine view of the abdomen/pelvis. COMPARISON: No relevant prior studies available. FINDINGS: Gastrointestinal tract: Copious amounts of stool throughout the colon. No dilation. Bones/joints: No acute fracture. No dislocation. IMPRESSION: No acute findings.
[2018-12-14 02:23] LABS: Albumin 3.9 g/dL (3.5-5.0); Calcium 9.5 mg/dL (8.4-10.2); Potassium 3.4 mmol/L (3.5-5.1); Total Bilirubin 0.3 mg/dL (0.2-1.3); Total Protein 6.8 g/dL (6.3-8.2)
[2018-12-14] MEDS ORDERED: MAGNESIUM CITRATE 296 ML BOTTLE PO ONE (04:00)
[2018-12-14] MEDS ORDERED: DICYCLOMINE 20 MG TAB PO STA (04:01)
[2018-12-14 04:21] VITALS: BP 150/78; PULSE 64; RESP 18; TEMP 98.4
== END 2018-12-14 04:18 | disposition home or self-care (01) ==
LOC: EC 23:28
DX: K59.00 Constipation, unspecified (principal); R10.33 Periumbilical pain; K21.9 Gastro-esophageal reflux disease without esophagitis; E78.5 Hyperlipidemia, unspecified; M19.90 Unspecified osteoarthritis, unspecified site; I12.9 Hypertensive chronic kidney disease with stage 1 through stage 4 chronic kidney disease, or unspecified chronic kidney disease; E11.22 Type 2 diabetes mellitus with diabetic chronic kidney disease; N18.3 Chronic kidney disease, stage 3 (moderate); F41.9 Anxiety disorder, unspecified; Z79.82 Long term (current) use of aspirin; Z79.84 Long term (current) use of oral hypoglycemic drugs; Z79.899 Other long term (current) drug therapy; Z88.5 Allergy status to narcotic agent; Z85.038 Personal history of other malignant neoplasm of large intestine; Z90.49 Acquired absence of other specified parts of digestive tract; Z98.890 Other specified postprocedural states
CPT/HCPCS: 36415; 80053; 82150; 83605; 83690; 85025; 81001; 74018; 96374; 99284; J2405

== ENCOUNTER 2019-01-04 21:24 | Inpatient (IN) | payer OTHER ==
[2019-01-04 21:31] LABS: Glucose,Whole Blood 268 mg/dL (75-99)
[2019-01-04] MEDS ORDERED: SODIUM CHLORIDE 0.9% 500 ML 500 ML IV STA ×2 (21:39→23:53)
--- NOTE | 2019-01-04 21:49 | ED ---
Altered Mental Status HPI - General Chief Complaint: Altered Mental Status Stated Complaint: Confused Time Seen by Provider: 01/04/19 21:35 Source: family Mode of arrival: wheelchair Limitations: altered mental status - History of Present Illness Initial Comments: This patient is a 63-year-old woman who is brought for evaluation of altered mental status. The patient is not able to give any history at the moment as she does appear quite confused. The patient states that she seemed to be in her normal state of health before he went to work. She developed some abdominal pain while he was at work and called him probably around 5 PM. He states that he was at home tonight with her between 1-2 hours ago when she became confused and was not answering him appropriately when he spoke with her. MD Complaint: altered mental status Onset/Timin -: hour(s) Severity: moderate Consistency of Symptoms: getting worse - Related Data Home Medications Medication Instructions Recorded Confirmed Aspirin 81 mg PO DAILY 08/23/15 05/26/18 Citalopram Hydrobromide [CeleXA] 20 mg PO QAM 08/23/15 05/26/18 Lisinopril-Hctz 20-25 mg 1 tab PO QAM 08/23/15 05/26/18 [Zestoretic 20-25] Lovastatin [Mevacor] 40 mg PO HS 08/23/15 05/26/18 Ranitidine HCl [Zantac] 300 mg PO QAM 08/23/15 05/26/18 clonazePAM [KlonoPIN] 0.5 mg PO QAM 08/23/15 05/26/18 metFORMIN HCL 1,000 mg PO DAILY 08/23/15 05/26/18 Ergocalciferol [Vitamin D2 50,000 unit PO TH 05/05/18 05/26/18 (DRISDOL)] Gabapentin [Neurontin] 600 mg PO BID 05/05/18 05/26/18 Pioglitazone [Actos] 30 mg PO DAILY 05/05/18 05/26/18 Previous Rx's Medication Instructions Recorded Acetaminophen-Codeine 300-30mg 1 each PO Q4HR PRN #18 tab 05/27/18 [Tylenol w/codeine #3] Docusate [Colace] 100 mg PO BID #30 capsule 05/27/18 Allergies Allergy/AdvReac Type Severity Reaction Status Date / Time hydromorphone [From Dilaudid] AdvReac Intermediate Unknown Verified 01/04/19 23:14 Review of Systems ROS Statement: Those systems with pertinent positive or pertinent negative responses have been documented in the HPI. ROS Other: All systems not noted in ROS Statement are negative. Constitutional: Denies: fever Respiratory: Denies: cough, dyspnea Cardiovascular: Denies: chest pain Gastrointestinal: Reports: as per HPI, abdominal pain Neurological: Reports: confusion. Denies: headache Past Medical History Past Medical History: Cancer, Diabetes Mellitus, GERD/Reflux, Hyperlipidemia, Hypertension, Osteoarthritis (OA), Renal Disease Additional Past Medical History / Comment(s): hiatal hernia,COLON CANCER-October 1995-no radiation or chemo,something is wrong with my kidneys-CKD stage 3",chronic arm pain and left flank pain. History of Any Multi-Drug Resistant Organisms: None Reported Past Surgical History: Adenoidectomy, Bowel Resection, Cholecystectomy, Hernia Repair, Tubal Ligation Additional Past Surgical History / Comment(s): COLONOSCOPY Past Anesthesia/Blood Transfusion Reactions: Motion Sickness Additional Past Anesthesia/Blood Transfusion Reaction / Comment(s): no hx blood transfusion Past Psychological History: Anxiety Smoking Status: Never smoker Past Alcohol Use History: None Reported Past Drug Use History: None Reported - Past Family History Mother Family Medical History: Cancer Additional Family Medical History / Comment(s): LUNG CANCER General Exam Limitations: altered mental status General appearance: alert, anxious, other (Appears delirious) Head exam: Present: atraumatic, normocephalic Eye exam: Present: normal appearance, PERRL, EOMI. Absent: scleral icterus, conjunctival injection, nystagmus ENT exam: Present: mucous membranes dry Neck exam: Present: normal inspection, full ROM. Absent: tenderness, meningismus Respiratory exam: Present: normal lung sounds bilaterally. Absent: respiratory distress, wheezes, rales, rhonchi, stridor Cardiovascular Exam: Present: regular rate, normal rhythm, normal heart sounds. Absent: systolic murmur, diastolic murmur, rubs, gallop GI/Abdominal exam: Present: soft, tenderness (There is mild). Absent: distended, guarding, rebound, rigid, mass Extremities exam: Present: normal inspection, normal capillary refill. Absent: pedal edema, calf tenderness Back exam: Present: normal inspection. Absent: CVA tenderness (R), CVA t enderness (L) Neurological exam: Present: alert, CN II-XII intact, other (Patient appears delirious. She is oriented to person but not place or time. She is able to answer very simple direct questions. She is not cooperating with the neurologic exam but she is moving all 4 extremities. No apparent sensory deficit.). Absent: oriented X3, motor sensory deficit Psychiatric exam: Present: anxious Skin exam: Present: warm, dry, intact, normal color. Absent: rash Course Vital Signs 01/04/19 01/04/19 01/05/19 21:25 23:09 00:02 Temperature 97.3 F L Pulse Rate 86 88 78 Respiratory 18 16 18 Rate Blood Pressure 184/93 177/103 174/91 O2 Sat by Pulse 100 99 99 Oximetry 01/05/19 01:40 Temperature 98.1 F Pulse Rate 95 Respiratory 18 Rate Blood Pressure 169/87 O2 Sat by Pulse 99 Oximetry Procedures - Sepsis Sepsis Focused Exam #1 Sepsis Focused Exam Complete: Yes Vital Signs & RN Notes Reviewed: Yes Capillary Refill: < 2 Seconds: Fingers Peripheral Pulses: Strong: Radial (R) Skin Color: Normal for Patient Respiratory Exam: normal lung sounds Cardiovascular Exam: regular rate, normal rhythm Medical Decision Making - Medical Decision Making Patient is a 63-year-old woman brought to be evaluated for abdominal pain and also acute delirium. The workup is revealing a small bowel obstruction, with lactic acidosis. Case is discussed with Dr. Means from the [facility] [place] [facility] will admit. Case also discussed with Dr. Quintanilla who is covering for Dr. Luigi bliss and did recommend further aggressive hydration. - Lab Data Result diagrams: 01/04/19 21:59 01/04/19 21:59 Lab Results 01/04/19 01/04/19 01/04/19 Range/Units 21:27 21:59 21:59 WBC 9.7 (3.8-10.6) k/uL RBC 4.52 (3.80-5.40) m/uL Hgb 13.4 (11.4-16.0) gm/dL Hct 40.6 (34.0-46.0) % MCV 89.7 (80.0-100.0) fL MCH 29.7 (25.0-35.0) pg MCHC 33.1 (31.0-37.0) g/dL RDW 12.7 (11.5-15.5) % Plt Count 233 (150-450) k/uL Neutrophils % 84 % Lymphocytes % 10 % Monocytes % 4 % Eosinophils % 1 % Basophils % 0 % Neutrophils # 8.1 H (1.3-7.7) k/uL Lymphocytes # 1.0 (1.0-4.8) k/uL Monocytes # 0.4 (0-1.0) k/uL Eosinophils # 0.1 (0-0.7) k/uL Basophils # 0.0 (0-0.2) k/uL PT (9.0-12.0) sec INR (<1.2) APTT (22.0-30.0) sec Sodium 140 (137-145) mmol/L Potassium 3.4 L (3.5-5.1) mmol/L Chloride 103 (98-107) mmol/L Carbon Dioxide 20 L (22-30) mmol/L Anion Gap 17 mmol/L BUN 21 H (7-17) mg/dL Creatinine 1.00 (0.52-1.04) mg/dL Est GFR (CKD-EPI)AfAm 70 (>60 ml/min/1.73 sqM) Est GFR (CKD-EPI)NonAf 61 (>60 ml/min/1.73 sqM) Glucose 257 H (74-99) mg/dL POC Glucose (mg/dL) 268 H (75-99) mg/dL POC Glu Lock Maintenance Supervisor ID Lactic Ac Sepsis Rflx Plasma Lactic Acid Julio (0.7-2.0) mmol/L Calcium 9.7 (8.4-10.2) mg/dL Total Bilirubin 0.5 (0.2-1.3) mg/dL AST 24 (14-36) U/L ALT 8 L (9-52) U/L Alkaline Phosphatase 49 (38-126) U/L Troponin I (0.000-0.034) ng/mL Total Protein 7.4 (6.3-8.2) g/dL Albumin 4.4 (3.5-5.0) g/dL Urine Color Urine Appearance (Clear) Urine pH (5.0-8.0) Ur Specific [place] (1.001-1.035) Urine Protein (Negative) Urine Glucose (UA) (Negative) Urine Ketones (Negative) Urine Blood (Negative) Urine Nitrite (Negative) Urine Bilirubin (Negative) Urine Urobilinogen (<2.0) mg/dL Ur Leukocyte Esterase (Negative) Urine Opiates Screen (NotDetected) Ur Oxycodone Screen (NotDetected) Urine Methadone Screen (NotDetected) Ur Propoxyphene Screen (NotDetected) Ur Barbiturates Screen (NotDetected) U Tricyclic Antidepress (NotDetected) Ur Phencyclidine Scrn (NotDetected) Ur Amphetamines Screen (NotDetected) U Methamphetamines Scrn (NotDetected) U Benzodiazepines Scrn (NotDetected) Urine Cocaine Screen (NotDetected) U Marijuana (THC) Screen (NotDetected) 01/04/19 01/04/19 01/04/19 Range/Units 21:59 21:59 23:06 WBC (3.8-10.6) k/uL RBC (3.80-5.40) m/uL Hgb (11.4-16.0) gm/dL Hct (34.0-46.0) % MCV (80.0-100.0) fL MCH (25.0-35.0) pg MCHC (31.0-37.0) g/dL RDW (11.5-15.5) % Plt Count (150-450) k/uL Neutrophils % % Lymphocytes % % Monocytes % % Eosinophils % % Basophils % % Neutrophils # (1.3-7.7) k/uL Lymphocytes # (1.0-4.8) k/uL Monocytes # (0-1.0) k/uL Eosinophils # (0-0.7) k/uL Basophils # (0-0.2) k/uL PT 11.3 (9.0-12.0) sec INR 1.1 (<1.2) APTT 21.9 L (22.0-30.0) sec Sodium (137-145) mmol/L Potassium (3.5-5.1) mmol/L Chloride (98-107) mmol/L Carbon Dioxide (22-30) mmol/L Anion Gap mmol/L BUN (7-17) mg/dL Creatinine (0.52-1.04) mg/dL Est GFR (CKD-EPI)AfAm (>60 ml/min/1.73 sqM) Est GFR (CKD-EPI)NonAf (>60 ml/min/1.73 sqM) Glucose (74-99) mg/dL POC Glucose (mg/dL) (75-99) mg/dL POC Glu Lock Maintenance Supervisor ID Lactic Ac Sepsis Rflx Plasma Lactic Acid Julio (0.7-2.0) mmol/L Calcium (8.4-10.2) mg/dL Total Bilirubin (0.2-1.3) mg/dL AST (14-36) U/L ALT (9-52) U/L Alkaline Phosphatase (38-126) U/L Troponin I 0.015 (0.000-0.034) ng/mL Total Protein (6.3-8.2) g/dL Albumin (3.5-5.0) g/dL Urine Color Light Yellow Urine Appearance Clear (Clear) Urine pH 7.5 (5.0-8.0) Ur Specific [place] 1.011 (1.001-1.035) Urine Protein Trace H (Negative) Urine Glucose (UA) 4+ H (Negative) Urine Ketones 2+ H (Negative) Urine Blood Negative (Negative) Urine Nitrite Negative (Negative) Urine Bilirubin Negative (Negative) Urine Urobilinogen <2.0 (<2.0) mg/dL Ur Leukocyte Esterase Negative (Negative) Urine Opiates Screen Not Detected (NotDetected) Ur Oxycodone Screen Not Detected (NotDetected) Urine Methadone Screen Not Detected (NotDetected) Ur Propoxyphene Screen Not Detected (NotDetected) Ur Barbiturates Screen Not Detected (NotDetected) U Tricyclic Antidepress Not Detected (NotDetected) Ur Phencyclidine Scrn Not Detected (NotDetected) Ur Amphetamines Screen Not Detected (NotDetected) U Methamphetamines Scrn Not Detected (NotDetected) U Benzodiazepines Scrn Not Detected (NotDetected) Urine Cocaine Screen Not Detected (NotDetected) U Marijuana (THC) Screen Not Detected (NotDetected) 01/04/19 01/04/19 Range/Units 23:06 23:49 WBC (3.8-10.6) k/uL RBC (3.80-5.40) m/uL Hgb (11.4-16.0) gm/dL Hct (34.0-46.0) % MCV (80.0-100.0) fL MCH (25.0-35.0) pg MCHC (31.0-37.0) g/dL RDW (11.5-15.5) % Plt Count (150-450) k/uL Neutrophils % % Lymphocytes % % Monocytes % % Eosinophils % % Basophils % % Neutrophils # (1.3-7.7) k/uL Lymphocytes # (1.0-4.8) k/uL Monocytes # (0-1.0) k/uL Eosinophils # (0-0.7) k/uL Basophils # (0-0.2) k/uL PT (9.0-12.0) sec INR (<1.2) APTT (22.0-30.0) sec Sodium (137-145) mmol/L Potassium (3.5-5.1) mmol/L Chloride (98-107) mmol/L Carbon Dioxide (22-30) mmol/L Anion Gap mmol/L BUN (7-17) mg/dL Creatinine (0.52-1.04) mg/dL Est GFR (CKD-EPI)AfAm (>60 ml/min/1.73 sqM) Est GFR (CKD-EPI)NonAf (>60 ml/min/1.73 sqM) Glucose (74-99) mg/dL POC Glucose (mg/dL) (75-99) mg/dL POC Glu Lock Maintenance Supervisor ID Lactic Ac Sepsis Rflx Y Plasma Lactic Acid Julio 5.4 H* (0.7-2.0) mmol/L Calcium (8.4-10.2) mg/dL Total Bilirubin (0.2-1.3) mg/dL AST (14-36) U/L ALT (9-52) U/L Alkaline Phosphatase (38-126) U/L Troponin I (0.000-0.034) ng/mL Total Protein (6.3-8.2) g/dL Albumin (3.5-5.0) g/dL Urine Color Urine Appearance (Clear) Urine pH (5.0-8.0) Ur Specific [place] (1.001-1.035) Urine Protein (Negative) Urine Glucose (UA) (Negative) Urine Ketones (Negative) Urine Blood (Negative) Urine Nitrite (Negative) Urine Bilirubin (Negative) Urine Urobilinogen (<2.0) mg/dL Ur Leukocyte Esterase (Negative) Urine Opiates Screen (NotDetected) Ur Oxycodone Screen (NotDetected) Urine Methadone Screen (NotDetected) Ur Propoxyphene Screen (NotDetected) Ur Barbiturates Screen (NotDetected) U Tricyclic Antidepress (NotDetected) Ur Phencyclidine Scrn (NotDetected) Ur Amphetamines Screen (NotDetected) U Methamphetamines Scrn (NotDetected) U Benzodiazepines Scrn (NotDetected) Urine Cocaine Screen (NotDetected) U Marijuana (THC) Screen (NotDetected) - EKG Data -: EKG Interpreted by Me EKG shows normal: sinus rhythm, axis (Normal), intervals (Normal), QRS complexes (NC interval 198 ms, QRS duration 76 ms, both normal. QTC 497 ms, prolonged.) Rate: normal (Rate 97 bpm) Interpretation: nonspecific ST-T wave changes Disposition Clinical Impression: Delirium due to general medical condition, Small bowel obstruction, Lactic acidosis Disposition: ADMITTED IP TO THIS [facility] Condition: Serious Is patient prescribed a controlled substance at d/c from ED?: No
[2019-01-04 22:17] LABS: Appearance,Urine Clear (Clear); Bilirubin,Urine Negative (Negative); Blood,Urine Negative (Negative); Color,Urine Light Yellow; Glucose,Urine (UA) 4+ (Negative); Leukocyte Esterase,Urine Negative (Negative); Nitrite,Urine Negative (Negative); PH, Urine 7.5 (5.0-8.0); Protein,Urine Trace (Negative); Specific Gravity,Urine 1.011 (1.001-1.035); Urobilinogen,Urine <2.0 mg/dL (<2.0)
[2019-01-04 22:18] LABS: Basophils % (A) 0 %; Eosinophils # (A) 0.1 k/uL (0-0.7); Eosinophils % (A) 1 %; HCT 40.6 % (34.0-46.0); HGB 13.4 gm/dL (11.4-16.0); Lymphocytes % (A) 10 %; MCH 29.7 pg (25.0-35.0); MCHC 33.1 g/dL (31.0-37.0); MCV 89.7 fL (80.0-100.0); Mean Platelet Volume 7.3; Monocytes # (A) 0.4 k/uL (0-1.0); Monocytes % (A) 4 %; Neutrophils # (A) 8.1 k/uL (1.3-7.7); Neutrophils % (A) 84 %; Platelet Count 233 k/uL (150-450); RBC 4.52 m/uL (3.80-5.40); RDW 12.7 % (11.5-15.5); WBC 9.7 k/uL (3.8-10.6)
[2019-01-04 22:25] LABS: Albumin 4.4 g/dL (3.5-5.0); Amphetamine Screen,Urine Not Detected (NotDetected); Barbiturate Screen,Urine Not Detected (NotDetected); Benzodiazepines Screen,Urine Not Detected (NotDetected); Calcium 9.7 mg/dL (8.4-10.2); Cocaine Screen,Urine Not Detected (NotDetected); Methadone Screen, Urine Not Detected (NotDetected); Opiate Screen,Urine Not Detected (NotDetected); Oxycodone Screen, Urine Not Detected (NotDetected); Phencyclidine Screen,Urine Not Detected (NotDetected); Potassium 3.4 mmol/L (3.5-5.1); Total Bilirubin 0.5 mg/dL (0.2-1.3); Total Protein 7.4 g/dL (6.3-8.2); Tricyclic Antidepressant,Urine Not Detected (NotDetected); Urn Cannabinoid Scrn Not Detected (NotDetected)
[2019-01-04 22:43] LABS: Ketones,Urine 2+ (Negative)
--- NOTE | 2019-01-04 23:11 | XR ---
EXAM: XR Chest, 1 View CLINICAL HISTORY: ITS.REASON XR Reason: altered mental status TECHNIQUE: Frontal view of the chest. COMPARISON: None. FINDINGS: Lungs: Unremarkable. No consolidation. Pleural space: Unremarkable. No pneumothorax. Heart: Unremarkable. No cardiomegaly. Mediastinum: Unremarkable. Bones/joints: Unremarkable. IMPRESSION: No acute cardiopulmonary abnormality.
--- NOTE | 2019-01-04 23:19 | CT ---
EXAM: CT Head Without Intravenous Contrast CLINICAL HISTORY: ITS.REASON CT Reason: altered mental status TECHNIQUE: Axial computed tomography images of the head/brain without intravenous contrast. CTDI is 49.1 mGy and DLP is 1433 mGy-cm. This CT exam was performed using one or more of the following dose reduction techniques: automated exposure control, adjustment of the mA and/or kV according to patient size, and/or use of iterative reconstruction technique. COMPARISON: None. FINDINGS: Brain: Mild global parenchymal volume loss with chronic microvascular ischemic changes. No hemorrhage. Ventricles: Unremarkable. No ventriculomegaly. Bones/joints: Unremarkable. No acute fracture. Soft tissues: Unremarkable. Sinuses: Unremarkable as visualized. No acute sinusitis. Mastoid air cells: Unremarkable as visualized. No mastoid effusion. IMPRESSION: 1. No intracranial hemorrhage or other acute intracranial abnormality. 2. Mild global parenchymal volume loss with chronic microvascular ischemic changes.
--- NOTE | 2019-01-04 23:29 | CT ---
EXAM: CT Abdomen and Pelvis With Intravenous Contrast CLINICAL HISTORY: ITS.REASON CT Reason: abdominal pain TECHNIQUE: Axial computed tomography images of the abdomen and pelvis with intravenous contrast. CTDI is 9.9, 10.4 mGy and DLP is 563.9, 354.6 mGy- cm. This CT exam was performed using one or more of the following dose reduction techniques: automated exposure control, adjustment of the mA and/or kV according to patient size, and/or use of iterative reconstruction technique. Delayed imaging was performed. COMPARISON: None. FINDINGS: Lung bases: Unremarkable. No mass. No consolidation. ABDOMEN: Liver: Subcentimeter hypodensities in the liver are too small to characterize. Gallbladder and bile ducts: Unremarkable. No calcified stones. No ductal dilation. Pancreas: Unremarkable. No mass. No ductal dilation. Spleen: Unremarkable. No splenomegaly. Adrenals: Unremarkable. No mass. Kidneys and ureters: Unremarkable. No solid mass. No hydronephrosis. Stomach and bowel: Dilated, fluid-filled loops of small bowel with apparent transition point in the right lower quadrant suggestive of a small bowel obstruction. No mucosal thickening. PELVIS: Appendix: No findings to suggest acute appendicitis. Bladder: Unremarkable. No mass. Reproductive: Unremarkable as visualized. ABDOMEN and PELVIS: Intraperitoneal space: Small amount of free fluid in the abdomen and pelvis. No free air. Bones/joints: No acute fracture. No dislocation. Soft tissues: Unremarkable. Vasculature: Unremarkable. No abdominal aortic aneurysm. Lymph nodes: Unremarkable. No enlarged lymph nodes. IMPRESSION: Dilated, fluid-filled loops of small bowel with apparent transition point in the right lower quadrant suggestive of a small bowel obstruction.
[2019-01-04 23:40] LABS: INR 1.1 (<1.2); Partial Thromboplastin Time 21.9 sec (22.0-30.0); Prothrombin Time 11.3 sec (9.0-12.0)
[2019-01-04] MEDS ORDERED: SODIUM CHLORIDE 0.9% 1,000 ML IV ONE (23:43)
[2019-01-04] MEDS ORDERED: LEVOFLOXACIN 750MG-D5W PMX 750 MG in DEXTROSE/WATER 1 150ML.BAG IVPB STA (23:43)
[2019-01-05] MEDS ORDERED: ONDANSETRON 4 MG/2 ML VIAL IVP PRN (00:43)
[2019-01-05] MEDS ORDERED: NALOXONE 0.4 MG/ML 1 ML VIAL IV PRN (00:43)
[2019-01-05] MEDS ORDERED: SODIUM CHLORIDE 0.9% 1,000 ML IV ONE ×2 (00:49→11:12)
[2019-01-05] MEDS: SODIUM CHLORIDE 0.9% 1,000 ML IV SCH ×3 (01:31→21:26)
[2019-01-05 02:51] LABS: Glucose,Whole Blood 214 mg/dL (75-99)
--- NOTE | 2019-01-05 03:37 | XR ---
EXAM: XR Chest, 1 View CLINICAL HISTORY: ITS.REASON XR Reason: NGT placement TECHNIQUE: Frontal view of the chest. COMPARISON: 01/04/19 IMPRESSION: NG tube side port terminates at the GE junction. Recommend advancing 10 cm.
--- NOTE | 2019-01-05 03:48 | P.HPIM ---
History of Present Illness H&P Date: 01/05/19 Chief Complaint: Confusion and abdominal pain 63-year-old female with history of hypertension colon cancer status post colectomy 1995, and abdominal adhesiolysis april 2018 Patient was brought into the hospital by her due to confusion and abdominal pain. Patient is unable to provide any meaningful history at this time. Patient was seen in the ICU, patient is alert and awake however confused and seems to be restless in bed. She keeps belching and spitting. Reports nausea and abdominal pain. She is unreliable historian at this point can't give any meaningful history. History obtained by reviewing medical records and talking to the ER staff. Seems like patient was found by her after he came back from work confused and complaining of severe abdominal pain for which she decided to bring her to the hospital. is not available immediately for further history taking. In the ED workup showed elevated lactic acid and hyperglycemia with m ild hypokalemia. CT of the abdomen suggested small bowel obstruction. Brain CT was negative for any acute process Gen. surgery was notified recommended conservative management at this time with close monitoring and IV fluid hydration Review of Systems ROS unobtainable: due to mental status Past Medical History Past Medical History: Cancer, Diabetes Mellitus, GERD/Reflux, Hyperlipidemia, Hypertension, Osteoarthritis (OA), Renal Disease Additional Past Medical History / Comment(s): hiatal hernia,COLON CANCER-October 1995-no radiation or chemo,something is wrong with my kidneys-CKD stage 3",chr onic arm pain and left flank pain. History of Any Multi-Drug Resistant Organisms: None Reported Past Surgical History: Adenoidectomy, Bowel Resection, Cholecystectomy, Hernia Repair, Tubal Ligation Additional Past Surgical History / Comment(s): COLONOSCOPY Past Anesthesia/Blood Transfusion Reactions: Motion Sickness Additional Past Anesthesia/Blood Transfusion Reaction / Comment(s): no hx blood transfusion Past Psychological History: Anxiety Smoking Status: Never smoker Past Alcohol Use History: None Reported Past Drug Use History: None Reported - Past Family History Mother Family Medical History: Cancer Additional Family Medical History / Comment(s): LUNG CANCER Medications and Allergies Home Medications Medication Instructions Recorded Confirmed Type Aspirin 81 mg PO DAILY 08/23/15 05/26/18 History Citalopram Hydrobromide [CeleXA] 20 mg PO QAM 08/23/15 05/26/18 History Lisinopril-Hctz 20-25 mg 1 tab PO QAM 08/23/15 05/26/18 History [Zestoretic 20-25] Lovastatin [Mevacor] 40 mg PO HS 08/23/15 05/26/18 History Ranitidine HCl [Zantac] 300 mg PO QAM 08/23/15 05/26/18 History clonazePAM [KlonoPIN] 0.5 mg PO QAM 08/23/15 05/26/18 History metFORMIN HCL 1,000 mg PO DAILY 08/23/15 05/26/18 History Ergocalciferol [Vitamin D2 50,000 unit PO TH 05/05/18 05/26/18 History (DRISDOL)] Gabapentin [Neurontin] 600 mg PO BID 05/05/18 05/26/18 History Pioglitazone [Actos] 30 mg PO DAILY 05/05/18 05/26/18 History Acetaminophen-Codeine 300-30mg 1 each PO Q4HR PRN #18 tab 05/27/18 Rx [Tylenol w/codeine #3] Docusate [Colace] 100 mg PO BID #30 capsule 05/27/18 Rx Allergies Allergy/AdvReac Type Severity Reaction Status Date / Time hydromorphone [From Dilaudid] AdvReac Intermediate Unknown Verified 01/04/19 23:14 Physical Exam Vitals: Vital Signs Temp Pulse Resp BP Pulse Ox 01/05/19 03:00 98.1 F 101 H 15 158/95 96 01/05/19 01:40 98.1 F 95 18 169/87 99 01/05/19 00:02 78 18 174/91 99 01/04/19 23:09 88 16 177/103 99 01/04/19 21:25 97.3 F L 86 18 184/93 100 Intake and Output 01/04/19 01/04/19 01/05/19 14:59 22:59 06:59 Intake Total 100 Output Total 475 Balance -375 Intake: IV 100 Sodium Chloride 0.9% 1, 100 000 ml @ 100 mls/hr IV . Q10H [facility] Rx#:[id number] Output: Urine 475 Other: Weight 58.967 kg Constitutional: Patient seems to be very uncomfortable complaining of abdominal pain, she is confused, does not cooperate well with exam. Eyes: Anicteric sclerae, moist conjunctiva Pupils equal round reactive to light ENMT: NC/AT Oropharynx clear, no erythema, or exudates Neck: Supple, FROM, no masses, or JVD No carotid bruits No thyromegaly Lungs: Clear to auscultation Clear to percussion Normal respiratory effort, no accessory muscle use Cardiovascular: Heart regular in rate and rhythm, No murmurs, gallops, or rubs No peripheral edema Abdominal: Soft, diffusely tender to palpation with rebound tenderness, very mild distention, no guarding no rigidity Possible component of rebound tenderness however patient is unreliable Abdomen moving with respiration Bowel sounds are negative No hepatomegaly, No splenomegaly No palpable mass No abdominal wall hernia noted Skin: Normal temperature, tone, texture, turgor No induration No subcutaneous nodules No rash, lesions No ulcers Extremities: No digital cyanosis No clubbing Pedal pulses intact and symmetrical Radial pulses intact and symmetrical No calf tenderness Psychiatric: Patient is alert and awake however she is confused. Very restless in bed due to pain Neuro could not perform proper neuro exam patient is not cooperating Lymphatics: no palpable cervical or supraclavicular , or inguinal lymph nodes Results CBC & Chem 7: 01/04/19 21:59 01/04/19 21:59 Labs: Abnormal Lab Results - Last 24 Hours (Table) 01/04/19 01/04/19 01/04/19 Range/Units 21:27 21:59 21:59 Neutrophils # 8.1 H (1.3-7.7) k/uL APTT (22.0-30.0) sec Potassium 3.4 L (3.5-5.1) mmol/L Carbon Dioxide 20 L (22-30) mmol/L BUN 21 H (7-17) mg/dL Glucose 257 H (74-99) mg/dL POC Glucose (mg/dL) 268 H (75-99) mg/dL Plasma Lactic Acid Julio (0.7-2.0) mmol/L ALT 8 L (9-52) U/L Urine Protein (Negative) Urine Glucose (UA) (Negative) Urine Ketones (Negative) 01/04/19 01/04/19 01/04/19 Range/Units 21:59 23:06 23:06 Neutrophils # (1.3-7.7) k/uL APTT 21.9 L (22.0-30.0) sec Potassium (3.5-5.1) mmol/L Carbon Dioxide (22-30) mmol/L BUN (7-17) mg/dL Glucose (74-99) mg/dL POC Glucose (mg/dL) (75-99) mg/dL Plasma Lactic Acid Julio 5.4 H* (0.7-2.0) mmol/L ALT (9-52) U/L Urine Protein Trace H (Negative) Urine Glucose (UA) 4+ H (Negative) Urine Ketones 2+ H (Negative) 01/05/19 Range/Units 02:47 Neutrophils # (1.3-7.7) k/uL APTT (22.0-30.0) sec Potassium (3.5-5.1) mmol/L Carbon Dioxide (22-30) mmol/L BUN (7-17) mg/dL Glucose (74-99) mg/dL POC Glucose (mg/dL) 214 H (75-99) mg/dL Plasma Lactic Acid Julio (0.7-2.0) mmol/L ALT (9-52) U/L Urine Protein (Negative) Urine Glucose (UA) (Negative) Urine Ketones (Negative) Assessment and Plan Assessment: 63-year-old female with history of colon cancer status post colectomy back in 1995, status post adhesio lysis back in April 2018. Admitted as an inpatient with anticipated length of stay more than 2 midnight for acute metabolic encephalopathy and underlying acute small bowel obstruction with lactic acidosis. General surgery was notified recommended conservative management at this time with aggressive hydration and reevaluation. Replace electrolytes and follow up lactic acid. Patient was admitted to the ICU for close monitoring Plan: acute Small bowel obstruction with history of adhesions, general surgery notified, recommended aggressive hydration overnight and reevaluation acute metabolic encephalopathy, brain CT negative for any acute process lactic acidosis , follow up levels after hydration mild hypokalemia , replace and follow up levels , check Mg patient received one dose of antibiotics in the ED, no evidence of acute infectious process. , will hold antibiotics for now hyperglycemia with history of DM, insulin sliding scale pain control , symptomatic control , NG tube for stomach decompression due to belching and discomfort zofran PRN patient admitted to [facility] ICU for close monitoring DVT PPX, heparin sc tid patient is full code by default no family members available at this time Discussed with: Patient, ER, RN Anticipated length of stay more than [address]: pending clinical course A total of 65 minutes was spent on the care of this complex patient more than 50% of the time was spent in counseling and care coordination.
[2019-01-05 03:56] LABS: Glucose,Whole Blood 174 mg/dL (75-99)
[2019-01-05] MEDS ORDERED: POTASSIUM CHLORIDE 2 MEQ/ML 20 ML VIAL IVPB SCH (04:00)
[2019-01-05] MEDS: INSULIN ASPART (NovoLOG) 100 UNIT/ML VIAL SQ SCH ×5 (04:03→21:21)
[2019-01-05] MEDS: POTASSIUM CHLORIDE 10 MEQ in WATER FOR INJECTION 1 100ML.BAG IVPB SCH ×6 (04:03→14:02)
--- NOTE | 2019-01-05 04:25 | XR ---
EXAM: XR Chest, 1 View CLINICAL HISTORY: ITS.REASON XR Reason: NGT placement TECHNIQUE: Frontal view of the chest. COMPARISON: 01/04/19 IMPRESSION: NG tube courses into the stomach but the tip projects off the field-of- view. Recommend imaging the abdomen.
[2019-01-05 08:01] LABS: Basophils # (A) 0.1 k/uL (0-0.2); Basophils % (A) 0 %; Eosinophils # (A) 0.1 k/uL (0-0.7); Eosinophils % (A) 1 %; HCT 39.5 % (34.0-46.0); HGB 12.8 gm/dL (11.4-16.0); Lymphocytes # (A) 0.5 k/uL (1.0-4.8); Lymphocytes % (A) 3 %; MCH 28.9 pg (25.0-35.0); MCHC 32.3 g/dL (31.0-37.0); MCV 89.6 fL (80.0-100.0); Monocytes # (A) 0.6 k/uL (0-1.0); Monocytes % (A) 4 %; Neutrophils % (A) 91 %; Platelet Count 249 k/uL (150-450); RBC 4.41 m/uL (3.80-5.40); RDW 13.8 % (11.5-15.5); WBC 14.3 k/uL (3.8-10.6)
[2019-01-05 08:04] LABS: Glucose,Whole Blood 148 mg/dL (75-99)
--- NOTE | 2019-01-05 08:14 | XR ---
EXAMINATION TYPE: XR chest 1V portable DATE OF EXAM: 01/05/2019 COMPARISON: Prior chest x-ray 01/05/2019 and earlier time HISTORY: Status post NG tube placement, shortness of breath TECHNIQUE: Single frontal view of the chest is obtained. FINDINGS: There is an NG tube, distal tip is within the left upper quadrant overlying the region of the stomach, has been repositioned in the interval. No pneumothorax or pleural effusion, no airspace disease. There are overlying cardiac leads. Heart is stable. Aorta is dense. IMPRESSION: Interval NG tube reposition as described.
[2019-01-05] MEDS: HEPARIN SODIUM,PORCINE 5,000 UNIT/ML 1 ML VIAL SQ SCH ×2 (08:17→17:00)
[2019-01-05] MEDS: PANTOPRAZOLE 40 MG/10 ML VIAL IV SCH (08:17)
[2019-01-05 08:25] LABS: Albumin 4.5 g/dL (3.5-5.0); Calcium 8.6 mg/dL (8.4-10.2); Potassium 3.2 mmol/L (3.5-5.1); Total Bilirubin 0.5 mg/dL (0.2-1.3); Total Protein 7.6 g/dL (6.3-8.2)
[2019-01-05 08:37] LABS: Magnesium 0.8 mg/dL (1.6-2.3)
[2019-01-05] MEDS ORDERED: Potassium Replacement Protocol 1 EACH MISC MISCELLANE PRN (08:42)
[2019-01-05] MEDS ORDERED: Magnesium Replacement Protocol 1 EACH MISC MISCELLANE PRN (08:42)
[2019-01-05] MEDS: MAGNESIUM SULFATE-D5W PMX 1 GM in DEXTROSE/WATER 1 100ML.BAG IVPB SCH ×4 (09:29→14:02)
--- NOTE | 2019-01-05 12:22 | P.GSCN ---
<Sunita Jasso Chloe - Last Filed: 01/05/19 12:20> History of Present Illness Consult date: 01/05/19 Reason for Consult: abdominal pain Requesting physician: Andrew Reese History of present illness: CHIEF COMPLAINT: Abdominal pain HISTORY OF PRESENT ILLNESS: 63-year-old female with a history of Uriah fundoplication and lisinopril adhesions performed in April 2018 who presented to the emergency room for altered mental status and abdominal pain. Patient examined this morning at the bedside in intensive care unit. Due to patient's mental status, she was unable to provide much history. No family at the bedside. Majority of HPI taken from nursing and review of chart. Apparently the patient began having abdominal pain that began yesterday and was confused so her brought her to the hospital for further evaluation. NG tube placed this morning per nursing with 1500 mL output. PAST MEDICAL HISTORY: See list. PAST SURGICAL HISTORY: See list. SOCIAL HISTORY: No illicit drug use. REVIEW OF SYSTEMS: Unable to obtain secondary to altered mental status PHYSICAL EXAM: VITAL SIGNS: Reviewed. GENERAL: Well-developed in no acute distress. HEENT: NG to LIS. No sclera icterus. Extraocular movements grossly intact. Moist buccal mucosa. Head is atraumatic, normocephalic. ABDOMEN: Soft. Nondistended. Mild tenderness with palpation of abdomen. No peritoneal signs. NEUROLOGIC: Lethargic. Able to answer yes or no questions LABORATORY DATA: WBC on admission 9.7. Repeat 14.3. Lactic acid 5.4. Repeat 2.4. IMAGING: CT abdomen and pelvis: Dilated fluid filled loops of small bowel with apparent transition point in the right lower quadrant suggestive of small bowel obstruction ASSESSMENT: 1. Abdominal pain 2. Small bowel obstruction 3. History of Uirah fundoplication and lysis of adhesions, April 2018 PLAN: 1. NPO 2. Continue NG tube 3. Continue antibiotics 4. Continue IV fluids. 5. Patient to undergo exploratory laparotomy with lysis of adhesions tomorrow with Dr. Meyers Nurse practitioner note has been reviewed by physician. Signing provider agrees with the documented findings, assessment, and plan of care. Past Medical History Past Medical History: Cancer, Diabetes Mellitus, GERD/Reflux, Hyperlipidemia, Hypertension, Osteoarthritis (OA), Renal Disease Additional Past Medical History / Comment(s): NDDM type II, spouse unsure if pt has peripheral neuropathy, CKD stage III, dysphagia since lap uriah surgery, protein calorie malnutrition, History of Any Multi-Drug Resistant Organisms: None Reported Past Surgical History: Adenoidectomy, Bowel Resection, Cholecystectomy, Ton sillectomy, Tubal Ligation Additional Past Surgical History / Comment(s): 1995 Bowel resection for cancer, colonoscopies, EGD, lap uriah fundloplication with lysis of adhesions, Past Anesthesia/Blood Transfusion Reactions: Motion Sickness Additional Past Anesthesia/Blood Transfusion Reaction / Comm: no hx blood transfusion Smoking Status: Never smoker - Past Family History Mother Family Medical History: Cancer Additional Family Medical History / Comment(s): LUNG CANCER Father Family Medical History: CVA/TIA Medications and Allergies Home Medications Medication Instructions Recorded Confirmed Type Citalopram Hydrobromide [CeleXA] 20 mg PO QAM 08/23/15 01/05/19 History Lisinopril-Hctz 20-25 mg 1 tab PO QAM 08/23/15 01/05/19 History [Zestoretic 20-25] Lovastatin [Mevacor] 40 mg PO HS 08/23/15 01/05/19 History Ranitidine HCl [Zantac] 300 mg PO QAM 08/23/15 01/05/19 History clonazePAM [KlonoPIN] 0.5 mg PO QAM 08/23/15 01/05/19 History metFORMIN HCL 1,000 mg PO DAILY 08/23/15 01/05/19 History Gabapentin [Neurontin] 600 mg PO DAILY 05/05/18 01/05/19 History Pioglitazone [Actos] 30 mg PO DAILY 05/05/18 01/05/19 History Insulin Glargine [Lantus] 30 unit SQ DAILY 01/05/19 01/05/19 History Allergies Allergy/AdvReac Type Severity Reaction Status Date / Time hydromorphone [From Dilaudid] AdvReac Intermediate Unknown Verified 01/04/19 23:14 Surgical - Exam Vital Signs Temp Pulse Resp BP Pulse Ox 97.3 F L 86 18 184/93 100 01/04/19 21:25 01/04/19 21:25 01/04/19 21:25 01/04/19 21:25 01/04/19 21:25 Results - Labs 01/05/19 07:37 01/05/19 07:37 Abnormal Lab Results - Last 24 Hours (Table) 01/04/19 01/04/19 01/04/19 Range/Units 21:27 21:59 21:59 WBC (3.8-10.6) k/uL Neutrophils # 8.1 H (1.3-7.7) k/uL Lymphocytes # (1.0-4.8) k/uL APTT (22.0-30.0) sec Potassium 3.4 L (3.5-5.1) mmol/L Carbon Dioxide 20 L (22-30) mmol/L BUN 21 H (7-17) mg/dL Glucose 257 H (74-99) mg/dL POC Glucose (mg/dL) 268 H (75-99) mg/dL Plasma Lactic Acid Julio (0.7-2.0) mmol/L Magnesium (1.6-2.3) mg/dL ALT 8 L (9-52) U/L Urine Protein (Negative) Urine Glucose (UA) (Negative) Urine Ketones (Negative) 01/04/19 01/04/19 01/04/19 Range/Units 21:59 23:06 23:06 WBC (3.8-10.6) k/uL Neutrophils # (1.3-7.7) k/uL Lymphocytes # (1.0-4.8) k/uL APTT 21.9 L (22.0-30.0) sec Potassium (3.5-5.1) mmol/L Carbon Dioxide (22-30) mmol/L BUN (7-17) mg/dL Glucose (74-99) mg/dL POC Glucose (mg/dL) (75-99) mg/dL Plasma Lactic Acid Julio 5.4 H* (0.7-2.0) mmol/L Magnesium (1.6-2.3) mg/dL ALT (9-52) U/L Urine Protein Trace H (Negative) Urine Glucose (UA) 4+ H (Negative) Urine Ketones 2+ H (Negative) 01/05/19 01/05/19 01/05/19 Range/Units 02:47 03:20 03:53 WBC (3.8-10.6) k/uL Neutrophils # (1.3-7.7) k/uL Lymphocytes # (1.0-4.8) k/uL APTT (22.0-30.0) sec Potassium (3.5-5.1) mmol/L Carbon Dioxide (22-30) mmol/L BUN (7-17) mg/dL Glucose (74-99) mg/dL POC Glucose (mg/dL) 214 H 174 H (75-99) mg/dL Plasma Lactic Acid Julio 4.6 H* (0.7-2.0) mmol/L Magnesium (1.6-2.3) mg/dL ALT (9-52) U/L Urine Protein (Negative) Urine Glucose (UA) (Negative) Urine Ketones (Negative) 01/05/19 01/05/19 01/05/19 Range/Units 07:37 07:37 07:37 WBC 14.3 H (3.8-10.6) k/uL Neutrophils # 13.0 H (1.3-7.7) k/uL Lymphocytes # 0.5 L (1.0-4.8) k/uL APTT (22.0-30.0) sec Potassium 3.2 L (3.5-5.1) mmol/L Carbon Dioxide (22-30) mmol/L BUN (7-17) mg/dL Glucose 148 H (74-99) mg/dL POC Glucose (mg/dL) (75-99) mg/dL Plasma Lactic Acid Julio 2.4 H* (0.7-2.0) mmol/L Magnesium 0.8 L* (1.6-2.3) mg/dL ALT (9-52) U/L Urine Protein (Negative) Urine Glucose (UA) (Negative) Urine Ketones (Negative) 01/05/19 Range/Units 08:01 WBC (3.8-10.6) k/uL Neutrophils # (1.3-7.7) k/uL Lymphocytes # (1.0-4.8) k/uL APTT (22.0-30.0) sec Potassium (3.5-5.1) mmol/L Carbon Dioxide (22-30) mmol/L BUN (7-17) mg/dL Glucose (74-99) mg/dL POC Glucose (mg/dL) 148 H (75-99) mg/dL Plasma Lactic Acid Julio (0.7-2.0) mmol/L Magnesium (1.6-2.3) mg/dL ALT (9-52) U/L Urine Protein (Negative) Urine Glucose (UA) (Negative) Urine Ketones (Negative) Microbiology - Last 24 Hours (Table) 01/05/19 03:00 Urine Culture - Preliminary Urine,Catheterized Diabetes panel 01/04/19 01/05/19 Range/Units 21:59 07:37 Sodium 140 139 (137-145) mmol/L Potassium 3.4 L 3.2 L (3.5-5.1) mmol/L Chloride 103 101 (98-107) mmol/L Carbon Dioxide 20 L 24 (22-30) mmol/L BUN 21 H 16 (7-17) mg/dL Creatinine 1.00 0.82 (0.52-1.04) mg/dL Glucose 257 H 148 H (74-99) mg/dL Calcium 9.7 8.6 (8.4-10.2) mg/dL AST 24 28 (14-36) U/L ALT 8 L 19 (9-52) U/L Alkaline Phosphatase 49 43 (38-126) U/L Total Protein 7.4 7.6 (6.3-8.2) g/dL Albumin 4.4 4.5 (3.5-5.0) g/dL Calcium panel 01/04/19 01/05/19 Range/Units 21:59 07:37 Calcium 9.7 8.6 (8.4-10.2) mg/dL Albumin 4.4 4.5 (3.5-5.0) g/dL Pituitary panel 01/04/19 01/05/19 Range/Units 21:59 07:37 Sodium 140 139 (137-145) mmol/L Potassium 3.4 L 3.2 L (3.5-5.1) mmol/L Chloride 103 101 (98-107) mmol/L Carbon Dioxide 20 L 24 (22-30) mmol/L BUN 21 H 16 (7-17) mg/dL Creatinine 1.00 0.82 (0.52-1.04) mg/dL Glucose 257 H 148 H (74-99) mg/dL Calcium 9.7 8.6 (8.4-10.2) mg/dL Adrenal panel 01/04/19 01/05/19 Range/Units 21:59 07:37 Sodium 140 139 (137-145) mmol/L Potassium 3.4 L 3.2 L (3.5-5.1) mmol/L Chloride 103 101 (98-107) mmol/L Carbon Dioxide 20 L 24 (22-30) mmol/L BUN 21 H 16 (7-17) mg/dL Creatinine 1.00 0.82 (0.52-1.04) mg/dL Glucose 257 H 148 H (74-99) mg/dL Calcium 9.7 8.6 (8.4-10.2) mg/dL Total Bilirubin 0.5 0.5 (0.2-1.3) mg/dL AST 24 28 (14-36) U/L ALT 8 L 19 (9-52) U/L Alkaline Phosphatase 49 43 (38-126) U/L Total Protein 7.4 7.6 (6.3-8.2) g/dL Albumin 4.4 4.5 (3.5-5.0) g/dL <Davi Meyers - Last Filed: 01/06/19 12:37> Surgical - Exam Vital Signs Temp Pulse Resp BP Pulse Ox 97.3 F L 86 18 184/93 100 01/04/19 21:25 01/04/19 21:25 01/04/19 21:25 01/04/19 21:25 01/04/19 21:25 Results - Labs 01/06/19 05:56 01/06/19 05:56 Abnormal Lab Results - Last 24 Hours (Table) 01/05/19 01/05/19 01/05/19 Range/Units 07:37 18:02 21:19 Lymphocytes # (Manual) (1.0-4.8) k/uL Sodium (137-145) mmol/L Potassium (3.5-5.1) mmol/L BUN (7-17) mg/dL Glucose (74-99) mg/dL POC Glucose (mg/dL) 168 H 128 H (75-99) mg/dL Calcium (8.4-10.2) mg/dL Magnesium (1.6-2.3) mg/dL Vitamin B12 195.0 L (200.0-944.0) pg/mL 01/06/19 01/06/19 01/06/19 Range/Units 05:56 05:56 06:25 Lymphocytes # (Manual) 0.44 L (1.0-4.8) k/uL Sodium 135 L (137-145) mmol/L Potassium 3.4 L (3.5-5.1) mmol/L BUN 21 H (7-17) mg/dL Glucose 157 H (74-99) mg/dL POC Glucose (mg/dL) 149 H (75-99) mg/dL Calcium 7.3 L (8.4-10.2) mg/dL Magnesium 2.8 H (1.6-2.3) mg/dL Vitamin B12 (200.0-944.0) pg/mL 01/06/19 Range/Units 11:48 Lymphocytes # (Manual) (1.0-4.8) k/uL Sodium (137-145) mmol/L Potassium (3.5-5.1) mmol/L BUN (7-17) mg/dL Glucose (74-99) mg/dL POC Glucose (mg/dL) 149 H (75-99) mg/dL Calcium (8.4-10.2) mg/dL Magnesium (1.6-2.3) mg/dL Vitamin B12 (200.0-944.0) pg/mL Microbiology - Last 24 Hours (Table) 01/05/19 00:34 Blood Culture - Preliminary Blood No Growth after 24 hours 01/04/19 23:05 Blood Culture - Preliminary Blood No Growth after 24 hours 01/05/19 03:00 Urine Culture - Preliminary Urine,Catheterized Diabetes panel 01/05/19 01/06/19 Range/Units 18:50 05:56 Sodium 135 L (137-145) mmol/L Potassium 4.0 3.4 L (3.5-5.1) mmol/L Chloride 103 (98-107) mmol/L Carbon Dioxide 24 (22-30) mmol/L BUN 21 H (7-17) mg/dL Creatinine 0.94 (0.52-1.04) mg/dL Glucose 157 H (74-99) mg/dL Calcium 7.3 L (8.4-10.2) mg/dL Thyroid panel 01/05/19 Range/Units 07:37 TSH 2.490 (0.465-4.680) mIU/L Calcium panel 01/06/19 Range/Units 05:56 Calcium 7.3 L (8.4-10.2) mg/dL Pituitary panel 01/05/19 01/05/19 01/06/19 Range/Units 07:37 18:50 05:56 Sodium 135 L (137-145) mmol/L Potassium 4.0 3.4 L (3.5-5.1) mmol/L Chloride 103 (98-107) mmol/L Carbon Dioxide 24 (22-30) mmol/L BUN 21 H (7-17) mg/dL Creatinine 0.94 (0.52-1.04) mg/dL Glucose 157 H (74-99) mg/dL Calcium 7.3 L (8.4-10.2) mg/dL TSH 2.490 (0.465-4.680) mIU/L Adrenal panel 01/05/19 01/06/19 Range/Units 18:50 05:56 Sodium 135 L (137-145) mmol/L Potassium 4.0 3.4 L (3.5-5.1) mmol/L Chloride 103 (98-107) mmol/L Carbon Dioxide 24 (22-30) mmol/L BUN 21 H (7-17) mg/dL Creatinine 0.94 (0.52-1.04) mg/dL Glucose 157 H (74-99) mg/dL Calcium 7.3 L (8.4-10.2) mg/dL Assessment and Plan Plan: Small bowel obstruction. Patient will undergo exploratory laparotomy with lysis of adhesions
[2019-01-05 12:36] LABS: Glucose,Whole Blood 175 mg/dL (75-99)
[2019-01-05] MEDS: MORPHINE SULFATE 4 MG/ML SYRINGE IV PRN ×3 (12:50→22:19)
[2019-01-05] MEDS: PIPERACILLIN-TAZOBACTAM 3.375 GM in SODIUM CHLORIDE 0.9% 100 ML IVPB SCH ×2 (12:53→21:25)
--- NOTE | 2019-01-05 13:57 | P.PN ---
Progress Note - Text Progress Note Date: 01/05/19 Briefly this is a patient with a history of colon cancer that presented with abdominal pain and was found to have a small bowel obstruction and being in acute metabolic encephalopathy secondary to SBO, hypomagnesemia and hypokalemia. Patient has been having episodes of agitation and has pulled out her NG tube overnight a few times. CT of the head was negative for any acute intracranial process. The patient was complaining of abdominal discomfort today. Focused exam Abdomen: Soft tender to palpation, no peritoneal signs Plan Continue current management we'll replace her electrolytes, patient will be initiated on IV antibiotics with Zosyn and rebolus to 1 L of normal saline as her lactic acid was still elevated and follow-up general surgery recommendations. We'll also consult neurology for further recommendations
--- NOTE | 2019-01-05 16:11 | P.CNNES ---
History of Present Illness Consult date: 01/05/19 Reason for Consult: Delirium Chief complaint: Abdominal pain History of Present Illness: REFERRING PHYSICIAN: Dr. Andrew Busch HISTORY OF PRESENT ILLNESS: Thank you for allowing me to evaluate Ms. Dina Ding. Ms. Ding is a 63-year-old woman with past medical history of colon cancer diagnosed in 1995 (no radiation or chemo), diabetes, GERD, hyperlipidemia, hypertension, osteoarthritis, chronic kidney disease stage III, chronic arm and left flank pain, anxiety, presenting to [facility] for altered mental status, consulted neurology for altered mental status/delirium. There is no family at bedside. Per H&P, patient was brought into the hospital by her husban d due to confusion and abdominal pain. Patient is not able to provide any history other than that her abdomen is in pain. She is awake but drowsy. PAST MEDICAL HISTORY: colon cancer diagnosed in 1995 (no radiation or chemo), diabetes, GERD, hyperlipidemia, hypertension, osteoarthritis, chronic kidney disease stage III, chronic arm and left flank pain, anxiety PAST SURGICAL HISTORY: adenoidectomy, bowel resection, cholecystectomy, hernia repair, tubal ligation MEDICATIONS: clonazepam every morning, ranitidine, metformin, lovastatin, lisinopril- hydrochlorothiazide, citalopram, pioglitazone, gabapentin, Lantus ALLERGIHydromorphoneAL HISTORY: Never smoker REVIEW OF SYSTEMS: The 14 systems are reviewed and no additional points are identified compared to the review of systems documented history and physical PHYSICAL EXAMINATION: VITAL SIGNS: T 98.5 HR 90 RR 24 blood pressure 162/89 O2 saturation 97% on room air GEN.: in mild distress HEENT: NCAT, sclera without icterus NECK: Supple SKIN AND EXTREMITIES: Warm to touch, no edema NEURO: MENTAL STATUS: Patient alert and oriented to self only. Patient repeats some words I ask her to say, but says "abdomen hurts" to most questions. CRANIAL NERVES II THROUGH XII: II: Pupils are equal and reactive to light symmetrically. Blinks to threat bilaterally. III, IV, : R eye ptosis VII. No clear facial asymmetry. MOTOR/SENSORY: Normal bulk/tone. Moving all 4 extremities spontaneously. Grimaces to pain in all 4 extremities REFLEXES: 2+ throughout. Toes are downgoing. COORDINATION/GAIT: Narrow-based and stable. Able to toe/heel/tandem walk DIAGNOSTIC TESTING: LABORATORY: WBC 14.3 hemoglobin 12.8 platelet 249 sodium 139 potassium 3.2 chloride 101 bicarb 24 BUN 16 creatinine 0.82 glucose 148 ` acid 2.4 magnesium 0.8 AST 28 ALT 19 alk phos 43 IMAGING: CT head without contrast 01/05/2019: No intracranial hemorrhage or other acute intracranial abnormality. Mild global parenchymal volume loss with chronic microvascular changes. CT abdomen/pelvis 01/05/2019: Dilator, fluid-filled loops of small bowel with apparent transition point in the right lower quadrant suggestive of a small bowel traction ASSESSMENT: Ms. Ding is a 63-year-old woman with past medical history of colon cancer diagnosed in 1995 (no radiation or chemo), diabetes, GERD, hyperlipidemia, hypertension, osteoarthritis, chronic kidney disease stage III, chronic arm and left flank pain, anxiety, presenting to [facility] for altered mental status, consulted neurology for altered mental status/delirium. Patient found with SBO. Acute sickness may be the cause of her change in mental status, but will also do further work-up. RECOMMENDATIONS: 1. Routine EEG 2. AMS work-up: ammonia, Vitamin B12, RPR, TSH 3. Neurology will continue to follow. Past Medical History Past Medical History: Cancer, Diabetes Mellitus, GERD/Reflux, Hyperlipidemia, Hypertension, Osteoarthritis (OA), Renal Disease Additional Past Medical History / Comment(s): NDDM type II, spouse unsure if pt has peripheral neuropathy, CKD stage III, dysphagia since lap kati surgery, protein calorie malnutrition, History of Any Multi-Drug Resistant Organisms: None Reported Past Surgical History: Adenoidectomy, Bowel Resection, Cholecystectomy, Tonsillectomy, Tubal Ligation Additional Past Surgical History / Comment(s): 1995 Bowel resection for cancer, colonoscopies, EGD, lap kati fundloplication with lysis of adhesions, Past Anesthesia/Blood Transfusion Reactions: Motion Sickness Additional Past Anesthesia/Blood Transfusion Reaction / Comment(s): no hx blood transfusion Smoking Status: Never smoker - Past Family History Mother Family Medical History: Cancer Additional Family Medical History / Comment(s): LUNG CANCER Father Family Medical History: CVA/TIA Medications and Allergies Home Medications Medication Instructions Recorded Confirmed Type Citalopram Hydrobromide [CeleXA] 20 mg PO QAM 08/23/15 01/05/19 History Lisinopril-Hctz 20-25 mg 1 tab PO QAM 08/23/15 01/05/19 History [Zestoretic 20-25] Lovastatin [Mevacor] 40 mg PO HS 08/23/15 01/05/19 History Ranitidine HCl [Zantac] 300 mg PO QAM 08/23/15 01/05/19 History clonazePAM [KlonoPIN] 0.5 mg PO QAM 08/23/15 01/05/19 History metFORMIN HCL 1,000 mg PO DAILY 08/23/15 01/05/19 History Gabapentin [Neurontin] 600 mg PO DAILY 05/05/18 01/05/19 History Pioglitazone [Actos] 30 mg PO DAILY 05/05/18 01/05/19 History Insulin Glargine [Lantus] 30 unit SQ DAILY 01/05/19 01/05/19 History Allergies Allergy/AdvReac Type Severity Reaction Status Date / Time hydromorphone [From Dilaudid] AdvReac Intermediate Unknown Verified 01/04/19 23:14 Physical Examination - Vital Signs Vital Signs: Vital Signs Temp Pulse Pulse Resp BP BP Pulse Ox 01/05/19 10:00 96 17 151/82 96 01/05/19 09:00 95 22 161/89 97 01/05/19 08:00 98.5 F 90 24 162/89 96 01/05/19 07:00 98 16 162/89 98 01/05/19 06:00 94 22 154/86 97 01/05/19 05:47 97 19 162/85 96 01/05/19 05:00 112 H 15 162/85 95 01/05/19 04:00 98.2 F 104 H 108 H 14 151/59 97 01/05/19 03:00 98.1 F 101 H 15 158/95 96 01/05/19 01:40 98.1 F 95 18 169/87 99 01/05/19 00:02 78 18 174/91 99 01/04/19 23:09 88 16 177/103 99 01/04/19 21:25 97.3 F L 86 18 184/93 100 Intake and Output 01/04/19 01/05/19 01/05/19 22:59 06:59 14:59 Intake Total 400 500 Output Total 1575 1800 Balance -1175 -1300 Intake: IV 400 500 Magnesium Sulfate-D5w Pmx 100 1 gm In Dextrose/Water 1 100ml.bag @ 100 mls/hr IVPB Q1H [facility] Rx#: [id number] Potassium Chloride 10 meq 100 In Water For Injection 1 100ml.bag @ 100 mls/hr IVPB Q1H [facility] Rx#: [id number] Sodium Chloride 0.9% 1, 400 300 000 ml @ 100 mls/hr IV . Q10H [facility] Rx#:[id number] Output: Gastric Drainage 1500 Urine 1575 300 Other: Voiding Method Indwelling Catheter Indwelling Catheter Weight 58.967 kg 58.967 kg Results - Laboratory Findings CBC and BMP: 01/05/19 07:37 01/05/19 07:37 Abnormal Lab Findings: Abnormal Labs 01/04/19 01/04/19 01/04/19 21:27 21:59 21:59 WBC Neutrophils # 8.1 H Lymphocytes # APTT Potassium 3.4 L Carbon Dioxide 20 L BUN 21 H Glucose 257 H POC Glucose (mg/dL) 268 H Plasma Lactic Acid Julio Magnesium ALT 8 L Urine Protein Urine Glucose (UA) Urine Ketones 01/04/19 01/04/19 01/04/19 21:59 23:06 23:06 WBC Neutrophils # Lymphocytes # APTT 21.9 L Potassium Carbon Dioxide BUN Glucose POC Glucose (mg/dL) Plasma Lactic Acid Julio 5.4 H* Magnesium ALT Urine Protein Trace H Urine Glucose (UA) 4+ H Urine Ketones 2+ H 01/05/19 01/05/19 01/05/19 02:47 03:20 03:53 WBC Neutrophils # Lymphocytes # APTT Potassium Carbon Dioxide BUN Glucose POC Glucose (mg/dL) 214 H 174 H Plasma Lactic Acid Julio 4.6 H* Magnesium ALT Urine Protein Urine Glucose (UA) Urine Ketones 01/05/19 01/05/19 01/05/19 07:37 07:37 07:37 WBC 14.3 H Neutrophils # 13.0 H Lymphocytes # 0.5 L APTT Potassium 3.2 L Carbon Dioxide BUN Glucose 148 H POC Glucose (mg/dL) Plasma Lactic Acid Julio 2.4 H* Magnesium 0.8 L* ALT Urine Protein Urine Glucose (UA) Urine Ketones 01/05/19 01/05/19 08:01 12:34 WBC Neutrophils # Lymphocytes # APTT Potassium Carbon Dioxide BUN Glucose POC Glucose (mg/dL) 148 H 175 H Plasma Lactic Acid Julio Magnesium ALT Urine Protein Urine Glucose (UA) Urine Ketones
[2019-01-05 18:05] LABS: Glucose,Whole Blood 168 mg/dL (75-99)
[2019-01-05 21:22] LABS: Glucose,Whole Blood 128 mg/dL (75-99)
[2019-01-06] MEDS: HEPARIN SODIUM,PORCINE 5,000 UNIT/ML 1 ML VIAL SQ SCH ×2 (00:22→10:28)
[2019-01-06] MEDS: PIPERACILLIN-TAZOBACTAM 3.375 GM in SODIUM CHLORIDE 0.9% 100 ML IVPB SCH ×3 (02:49→17:55)
[2019-01-06] MEDS: SODIUM CHLORIDE 0.9% 1,000 ML IV SCH ×3 (06:02→23:18)
[2019-01-06] MEDS: INSULIN ASPART (NovoLOG) 100 UNIT/ML VIAL SQ SCH ×4 (06:26→20:32)
[2019-01-06 06:27] LABS: Glucose,Whole Blood 149 mg/dL (75-99)
[2019-01-06 06:46] LABS: HCT 37.9 % (34.0-46.0); HGB 12.4 gm/dL (11.4-16.0); MCH 29.4 pg (25.0-35.0); MCHC 32.8 g/dL (31.0-37.0); MCV 89.7 fL (80.0-100.0); Mean Platelet Volume 7.6; Platelet Count 200 k/uL (150-450); RBC 4.23 m/uL (3.80-5.40); RDW 14.3 % (11.5-15.5); WBC 4.4 k/uL (3.8-10.6)
[2019-01-06 06:56] LABS: Calcium 7.3 mg/dL (8.4-10.2); Magnesium 2.8 mg/dL (1.6-2.3); Potassium 3.4 mmol/L (3.5-5.1)
[2019-01-06 08:14] LABS: Band Neutrophils % 27 %; Lymphocytes # (M) 0.44 k/uL (1.0-4.8); Monocytes # (M) 0.26 k/uL (0-1.0); Neutrophils % (M) 59 %; Nucleated Red Blood Cells 0 /100 WBC (0-0); Total Cells Counted 200
[2019-01-06] MEDS: PANTOPRAZOLE 40 MG/10 ML VIAL IV SCH (10:28)
[2019-01-06] MEDS ORDERED: CYANOCOBALAMIN 1,000 MCG/ML 1 ML VIAL IM ONE (11:00)
[2019-01-06] MEDS: MORPHINE SULFATE 4 MG/ML SYRINGE IV PRN (11:30)
[2019-01-06 12:03] LABS: Glucose,Whole Blood 149 mg/dL (75-99)
--- NOTE | 2019-01-06 12:31 | P.PN ---
Subjective Progress Note Date: 01/06/19 Patient seen and examined follow-up, NG tube in place with bilious drainage, the patient complaining of abdominal pain just received morphine approximately 30 minutes ago, scheduled for expiratory laparotomy with lysis of adhesions later today, family's questions answered. serum potassium 3.4 today. Magnesium 2.8. No acute events overnight, patient afebrile without leukocytosis Objective - Vital Signs Vital signs: Vital Signs Temp 99.6 F 01/06/19 08:00 Pulse 90 01/06/19 08:00 Resp 16 01/06/19 04:00 BP 112/60 01/06/19 08:00 Pulse Ox 96 01/06/19 08:00 Intake & Output 01/05/19 01/06/19 01/06/19 18:59 06:59 18:59 Intake Total 1200 1300 Output Total 2050 575 Balance -850 725 Weight 58.967 kg 63.5 kg Intake: IV 1200 900 Magnesium Sulfate-D5w Pmx 400 1 gm In Dextrose/Water 1 100ml.bag @ 100 mls/hr IVPB Q1H [facility] Rx#: [id number] Potassium Chloride 10 meq 400 In Water For Injection 1 100ml.bag @ 100 mls/hr IVPB Q1H [facility] Rx#: [id number] Sodium Chloride 0.9% 1, 300 900 000 ml @ 100 mls/hr IV . Q10H [facility] Rx#:[id number] Sodium Chloride 0.9% 500 100 ml 500 ml @ 1000 mls/hr IV .Q30M [facility] Rx#: [id number] Intake, IV Titration 400 Amount Piperacillin-Tazobactam 3 100 .375 gm In Sodium Chloride 0.9% 100 ml @ 25 mls/hr IVPB Q8H [facility] Rx#: [id number] Sodium Chloride 0.9% 1, 300 000 ml @ 100 mls/hr IV . Q10H [facility] Rx#:[id number] Oral 0 Output: Gastric Drainage 1500 150 Urine 550 425 Other: Voiding Method Indwelling Catheter Indwelling Catheter Indwelling Catheter # Voids 0 - Exam Constitutional: No acute distress, conversant, pleasant Eyes: Anicteric sclerae, moist conjunctiva, no lid-lag, PERRLA ENMT: NC/AT,Oropharynx clear, no erythema, exudates Neck:Supple, FROM, no masses, or JVD, No carotid bruits; No thyromegaly Lungs: Clear to auscultation, Clear to percussion, Normal respiratory effort, no accessory muscle use Cardiovascular: Heart regular in rate and rhythm, No murmurs, gallops, or rubs no peripheral edema Abdominal: Soft tender to palpation, but distended with guarding, hypoactive bowel sounds NG tube in place, Skin: Normal temperature, tone, texture, turgor, No induration No subcutaneous nodules, No rash, lesions, No ulcers Extremities:No digital cyanosis No clubbing, Pedal pulses intact and symmetrical Radial pulses intact and symmetrical Normal gait and station, No calf tenderness Psychiatric: Alert and oriented to person, place and time, Appropriate affect Intact judgement Neuro: Muscles Strength 5/5 in all 4 extremities, Sensation to light touch grossly present throughout, Cranial nerves II-XII grossly intact. No focal sensory deficits - Labs CBC & Chem 7: 01/06/19 05:56 01/06/19 05:56 Labs: Abnormal Lab Results - Last 24 Hours (Table) 01/05/19 01/05/19 01/05/19 Range/Units 07:37 12:34 18:02 Lymphocytes # (Manual) (1.0-4.8) k/uL Sodium (137-145) mmol/L Potassium (3.5-5.1) mmol/L BUN (7-17) mg/dL Glucose (74-99) mg/dL POC Glucose (mg/dL) 175 H 168 H (75-99) mg/dL Calcium (8.4-10.2) mg/dL Magnesium (1.6-2.3) mg/dL Vitamin B12 195.0 L (200.0-944.0) pg/mL 01/05/19 01/06/19 01/06/19 Range/Units 21:19 05:56 05:56 Lymphocytes # (Manual) 0.44 L (1.0-4.8) k/uL Sodium 135 L (137-145) mmol/L Potassium 3.4 L (3.5-5.1) mmol/L BUN 21 H (7-17) mg/dL Glucose 157 H (74-99) mg/dL POC Glucose (mg/dL) 128 H (75-99) mg/dL Calcium 7.3 L (8.4-10.2) mg/dL Magnesium 2.8 H (1.6-2.3) mg/dL Vitamin B12 (200.0-944.0) pg/mL 01/06/19 01/06/19 Range/Units 06:25 11:48 Lymphocytes # (Manual) (1.0-4.8) k/uL Sodium (137-145) mmol/L Potassium (3.5-5.1) mmol/L BUN (7-17) mg/dL Glucose (74-99) mg/dL POC Glucose (mg/dL) 149 H 149 H (75-99) mg/dL Calcium (8.4-10.2) mg/dL Magnesium (1.6-2.3) mg/dL Vitamin B12 (200.0-944.0) pg/mL Microbiology - Last 24 Hours (Table) 01/05/19 00:34 Blood Culture - Preliminary Blood No Growth after 24 hours 01/04/19 23:05 Blood Culture - Preliminary Blood No Growth after 24 hours 01/05/19 03:00 Urine Culture - Preliminary Urine,Catheterized Assessment and Plan (1) Small bowel obstruction Narrative/Plan: * Patient scheduled for exploratory laparoscopy with likely lysis of adhesions today * Afebrile without leukocytosis * Continue supportive therapy with pain medication and anti-emetics * NG tube to low intermittent suction * Continue empiric IV antibiotics with Zosyn Current Visit: Yes Status: Acute Code(s): K56.609 - UNSP INTESTNL OBST, UNSP TO PARTIAL VERSUS COMPLETE OBST SNOMED Code(s): 842399981 (2) Hypokalemia Narrative/Plan: * Likely secondary to small bowel obstruction GI loss patient's intractable nausea vomiting and NG tube in place * Continue to replete the potassium currently on replacement protocol Current Visit: Yes Status: Acute Code(s): E87.6 - HYPOKALEMIA SNOMED Code(s): 31869389 (3) Hypomagnesemia Narrative/Plan: * Secondary to GI loss * Now resolved after being replaced * Current Visit: Yes Status: Resolved Code(s): E83.42 - HYPOMAGNESEMIA SNOMED Code(s): 283423710 (4) Metabolic encephalopathy Narrative/Plan: * The family at bedside reporting improved cognition * Multifactorial secondary to small bowel obstruction with severe electrolyte derangements/abnormalities * CT of the head negative for any acute intracranial pathology only mild global parenchymal volume loss * Appreciate neurology recommendations Current Visit: Yes Status: Acute Code(s): G93.41 - METABOLIC ENCEPHALOPATHY SNOMED Code(s): 60347976 (5) Type 2 diabetes mellitus with hyperglycemia Narrative/Plan: * Blood sugars elevated but are stable * Continue to monitor with Accu-Cheks and correctional scale insulin coverage Current Visit: Yes Status: Acute Code(s): E11.65 - TYPE 2 DIABETES MELLITUS WITH HYPERGLYCEMIA SNOMED Code(s): 476997967529331 (6) Essential hypertension Narrative/Plan: * Nothing by mouth but blood pressure stable and controlled * We'll continue to monitor Current Visit: Yes Status: Chronic Code(s): I10 - ESSENTIAL (PRIMARY) HYPERTENSION SNOMED Code(s): 37540669 Plan: * Disposition continue current management * Anticipated discharge to be determined by course
--- NOTE | 2019-01-06 12:38 | P.PN ---
Progress Note - Text Progress Note Date: 01/06/19 The patient's persistent small bowel obstruction. Patient will undergo exploratory laparotomy with lysis of adhesions today. I discussed this with the patient's family and .
[2019-01-06] MEDS ORDERED: IV FLUID CONTINUATION 1,000 ML IV ONE (13:03)
[2019-01-06] MEDS ORDERED: MIDAZOLAM (PF) 2 MG/2 ML VIAL IV ONE (13:29)
[2019-01-06] MEDS ORDERED: ROPIVACAINE EPIDURAL PRN (13:47)
[2019-01-06] MEDS ORDERED: NALOXONE 0.4 MG/ML 1 ML VIAL IV PRN ×2 (13:47→14:59)
[2019-01-06] MEDS ORDERED: MORPHINE SULFATE EPIDURAL PRN (13:47)
[2019-01-06] MEDS ORDERED: SODIUM CHLORIDE 0.9% EPIDURAL PRN (13:47)
[2019-01-06] MEDS ORDERED: ROCURONIUM BROMIDE 10 MG/ML 10 ML VIAL IV ONE (13:53)
[2019-01-06] MEDS ORDERED: fentaNYL (PF) 50 MCG/ML 2 ML AMP ONE (13:53)
[2019-01-06] MEDS ORDERED: NEOSTIGMINE 1 MG/ML 10 ML VIAL ONE (13:53)
[2019-01-06] MEDS ORDERED: PROPOFOL 10 MG/ML 20 ML VIAL IV ONE (13:53)
[2019-01-06] MEDS ORDERED: LIDOCAINE 1% INJ 10MG/ML (20 ML MDV) ONE (13:53)
[2019-01-06] MEDS ORDERED: SUCCINYLCHOLINE CHLORIDE 100 MG/5 ML SYR IV ONE (13:53)
[2019-01-06] MEDS ORDERED: PHENYLEPHRINE-0.9% NACL SYG 1 MG/10 ML SYRINGE ONE (13:53)
[2019-01-06] MEDS ORDERED: GLYCOPYRROLATE 0.2 MG/ML 2 ML VIAL ONE (13:53)
--- NOTE | 2019-01-06 13:56 | P.PN ---
Progress Note - Text Progress Note Date: 01/06/19 SUBJECTIVE/INTERVAL EVENTS: No acute overnight events. Patient is doing much better. Patient's family is in her room. They state that she looks like night and day compared to yesterday. PHYSICAL EXAMINATION: VITAL SIGNS: T 99.9 HR 80 RR 16 blood pressure 107/72 O2 saturation 96% on room air GEN.: smiling, though still endorsing abdominal pain HEENT: NCAT, sclera without icterus NECK: Supple SKIN AND EXTREMITIES: Warm to touch, no edema NEURO: MENTAL STATUS: Patient alert and oriented to self, place and time. Able to name the current president. Patient is able to name and repeat. No neglect. CRANIAL NERVES II THROUGH XII: II: Pupils are equal and reactive to light symmetrically. Blinks to threat bilaterally. III, IV, : R eye ptosis VII. No clear facial asymmetry. XII. tongue midline MOTOR/SENSORY: Normal bulk/tone. Moving all 4 extremities spontaneously. Grimaces to pain in all 4 extremities REFLEXES: 2+ throughout. Toes are downgoing. COORDINATION/GAIT: Deferred due to abdominal pain. DIAGNOSTIC TESTING: LABORATORY: WBC 14.3 hemoglobin 12.8 platelet 249 sodium 139 potassium 3.2 chloride 101 bicarb 24 BUN 16 creatinine 0.82 glucose 148 ` acid 2.4 magnesium 0.8 AST 28 ALT 19 alk phos 43 vitamin B12 195 ammonia 11 TSH 2.490 IMAGING: CT head without contrast 01/05/2019: No intracranial hemorrhage or other acute intracranial abnormality. Mild global parenchymal volume loss with chronic microvascular changes. CT abdomen/pelvis 01/05/2019: Dilator, fluid-filled loops of small bowel with apparent transition point in the right lower quadrant suggestive of a small bowel traction ASSESSMENT: Ms. Ding is a 63-year-old woman with past medical history of colon cancer diagnosed in 1995 (no radiation or chemo), diabetes, GERD, hyperlipidemia, hypertension, osteoarthritis, chronic kidney disease stage III, chronic arm and left flank pain, anxiety, presenting to [facility] for altered mental status, consulted neurology for altered mental status/delirium. Patient found with SBO. Acute sickness may be the cause of her change in mental status, but will also do further work-up. Patient's mental status has improved significantly with improvement of her abdominal pain. Patient found with low vitamin B12 RECOMMENDATIONS: 1. Routine EEG pending. 2. Gave vitamin B12 IM 1000 g 1 today. The patient able to tolerate oral diet, can start B12 by mouth 1000 g daily. 3. Neurology will sign off at this time. Feel free to [employer] message me over the weekend if you have any questions or concerns
[2019-01-06] MEDS ORDERED: LACTATED RINGERS 1,000 ML IV ONE ×3 (14:28→14:59)
[2019-01-06] MEDS ORDERED: HYDROmorphone 0.5 MG/0.5 ML SYRINGE IVP PRN (14:59)
--- NOTE | 2019-01-06 14:59 | P.OP ---
Date of Procedure: 01/06/19 Preoperative Diagnosis: Small bowel structure Postoperative Diagnosis: Small bowel obstruction secondary to closed loop obstruction Ischemic small bowel Procedure(s) Performed: Exploratory laparotomy Lysis of adhesion Small bowel resection Anesthesia: ALLYSON Surgeon: Davi Meyers Estimated Blood Loss (ml): 20 Pathology: other (Ileum) Condition: stable Disposition: PACU Description of Procedure: Patient's placed on on the operative table in the supine position. She received general anesthesia. Her abdomen was prepped and draped in usual sterile fashion. The areas entered through midline incision. Upon the abdomen there was serosanguineous ascites. The small bowel was examined. There may be a loop of small bowel in the right lower quadrant which was ischemic. The adhesive band was lysed. In the closed loop released. The small bowel was obviously ischemic. At this point the small bowel was transected proximally distally with a GI stapler and then the mesentery the bowel was divided using the Enseal device. The bowel was then reanastomosed in a [id number] functional end-to-end staple anastomosis using the JOSE and TA stapler. The window mesentery was closed 3-0 Vicryl suture. Several other adhesive bands were then lysed. The small bowel was run. There is no evidence of any other small bowel obstruction. The abdomen was irrigated with 4 L normal saline. The fascia is closed loop #1 PDS suture. Skin was closed elsy. Patient tolerated the will was sent to recovery in stable condition.
[2019-01-06 17:04] LABS: Glucose,Whole Blood 150 mg/dL (75-99)
--- NOTE | 2019-01-06 18:03 | EEG ---
ELECTROENCEPHALOGRAM REPORT DATE OF PROCEDURE: 01/06/2019 ELECTROENCEPHALOGRAM (EEG) REPORT: TECHNIQUE: A routine 18 channel EEG was performed with video using the 10/20 international electrode placement system. HISTORY: Delirium. Patient was brought to the hospital by her for confusion and abdominal pain. CURRENT MEDICATIONS: Unknown. STUDY DURATION: 25 minutes. FINDINGS: Please note that an excess of beta frequency activity was noted. This is not epileptiform in nature and may in part be due to medication effect. BACKGROUND: The background activity consisted of unsustained 7 to 8 Hz rhythmic waveforms with some intermixed theta range slowing. ACTIVATION: Hyperventilation: Not performed. Photic stimulation: No driving seen. Sleep: Drowsy. ABNORMALITIES: 1. Occasional frontal intermittent rhythmic delta activity was seen. 2. Intermittent diffuse 5 to 7 Hz polymorphic theta range slowing was seen with superimposed faster frequencies. IMPRESSION: Abnormal EEG. The frontal intermittent rhythmic delta activity (FIRDA) as well as the diffuse theta range slowing mentioned above is not epileptiform in nature. These findings indicate mild diffuse cerebral dysfunction which may in part be due to medication effect. Please note that portions of the recording were limited due to muscle artifact. No seizures were recorded. No epileptiform activity was present. MMODL / IJN: [id number] /
[2019-01-06 20:36] LABS: Glucose,Whole Blood 148 mg/dL (75-99)
[2019-01-07] MEDS: PIPERACILLIN-TAZOBACTAM 3.375 GM in SODIUM CHLORIDE 0.9% 100 ML IVPB SCH ×3 (03:28→20:32)
[2019-01-07 06:12] LABS: Glucose,Whole Blood 138 mg/dL (75-99)
[2019-01-07] MEDS: INSULIN ASPART (NovoLOG) 100 UNIT/ML VIAL SQ SCH ×4 (06:22→20:16)
[2019-01-07 07:15] LABS: HGB 10.3 gm/dL (11.4-16.0); MCH 29.8 pg (25.0-35.0); MCHC 32.3 g/dL (31.0-37.0); MCV 92.3 fL (80.0-100.0); Mean Platelet Volume 7.7; Platelet Count 164 k/uL (150-450); RBC 3.47 m/uL (3.80-5.40); RDW 13.6 % (11.5-15.5); WBC 5.4 k/uL (3.8-10.6)
[2019-01-07 07:32] LABS: Calcium 7.4 mg/dL (8.4-10.2); Potassium 3.9 mmol/L (3.5-5.1)
[2019-01-07] MEDS: PANTOPRAZOLE 40 MG/10 ML VIAL IV SCH (08:01)
[2019-01-07] MEDS: ENOXAPARIN 40 MG/0.4 ML SYRINGE SQ SCH (08:01)
[2019-01-07 10:31] LABS: Monocytes # (M) 0.22 k/uL (0-1.0); Nucleated Red Blood Cells 0 /100 WBC (0-0)
[2019-01-07 10:32] LABS: Band Neutrophils % 12 %; Lymphocytes # (M) 0.43 k/uL (1.0-4.8); Metamyelocytes # (M) 0.05 k/uL (0); Metamyelocytes % 1 %; Neutrophils % (M) 76 %; Total Cells Counted 200
[2019-01-07 10:33] LABS: Poikilocytosis (M) Present
--- NOTE | 2019-01-07 11:12 | P.PN ---
Subjective Progress Note Date: 01/07/19 Patient seen and examined and follow up, was sleeping well, does complain of some abdominal tenderness over her incision. POD#1 exploratory laparotomy with lysis of adhesion and small bowel resection Abdominal binder and NG tube in place, patient denying any passing gas. Has not been up and ambulatory. Hemoglobin down to 10.3 satisfactory oxygen saturation 92% on room air. Vitamin B12 levels are diminished started on supplementation yesterday. Suggesting mild diffuse cerebral dysfunction. No acute events overnight Objective - Vital Signs Vital signs: Vital Signs Temp 98.1 F 01/07/19 08:04 Pulse 82 01/07/19 08:04 Resp 16 01/07/19 08:04 BP 115/64 01/07/19 08:04 Pulse Ox 92 L 01/07/19 08:04 Intake & Output 01/06/19 01/07/19 01/07/19 18:59 06:59 18:59 Intake Total 1100 Output Total 170 375 Balance 930 -375 Weight 68.5 kg Intake: IV 1100 Output: Urine 150 375 Estimated Blood Loss 20 Other: Voiding Method Indwelling Catheter Indwelling Catheter Indwelling Catheter # Voids 0 - Exam Constitutional: No acute distress, conversant, pleasant Eyes: Anicteric sclerae, moist conjunctiva, no lid-lag, PERRLA ENMT: NC/AT,Oropharynx clear, no erythema, exudates, NG tube in place Neck:Supple, FROM, no masses, or JVD, No carotid bruits; No thyromegaly Lungs: Clear to auscultation, Clear to percussion, Normal respiratory effort, no accessory muscle use Cardiovascular: Heart regular in rate and rhythm, No murmurs, gallops, or rubs no peripheral edema Abdominal: Soft tender to palpation, over incision , no bowel sounds, dressing clean dry and intact, abdominal binder in place Skin: Normal temperature, tone, texture, turgor, No induration No subcutaneous nodules, No rash, lesions, No ulcers Extremities:No digital cyanosis No clubbing, Pedal pulses intact and symmetrical Radial pulses intact and symmetrical Normal gait and station, No calf tenderness Psychiatric: Alert and oriented to person, place and time, Appropriate affect Intact judgement Neuro: Muscles Strength 5/5 in all 4 extremities, Sensation to light touch grossly present throughout, Cranial nerves II-XII grossly intact. No focal sensory deficits - Labs CBC & Chem 7: 01/07/19 06:52 01/07/19 06:52 Labs: Abnormal Lab Results - Last 24 Hours (Table) 01/06/19 01/06/19 01/06/19 Range/Units 11:48 16:58 20:28 RBC (3.80-5.40) m/uL Hgb (11.4-16.0) gm/dL Hct (34.0-46.0) % Lymphocytes # (Manual) (1.0-4.8) k/uL Metamyelocytes # (Man) (0) k/uL Chloride (98-107) mmol/L BUN (7-17) mg/dL Creatinine (0.52-1.04) mg/dL Glucose (74-99) mg/dL POC Glucose (mg/dL) 149 H 150 H 148 H (75-99) mg/dL Calcium (8.4-10.2) mg/dL 01/07/19 01/07/19 01/07/19 Range/Units 06:10 06:52 06:52 RBC 3.47 L (3.80-5.40) m/uL Hgb 10.3 L (11.4-16.0) gm/dL Hct 32.0 L (34.0-46.0) % Lymphocytes # (Manual) 0.43 L (1.0-4.8) k/uL Metamyelocytes # (Man) 0.05 H (0) k/uL Chloride 108 H (98-107) mmol/L BUN 33 H (7-17) mg/dL Creatinine 1.10 H (0.52-1.04) mg/dL Glucose 128 H (74-99) mg/dL POC Glucose (mg/dL) 138 H (75-99) mg/dL Calcium 7.4 L (8.4-10.2) mg/dL Microbiology - Last 24 Hours (Table) 01/05/19 00:34 Blood Culture - Preliminary Blood No Growth after 48 hours 01/04/19 23:05 Blood Culture - Preliminary Blood No Growth after 48 hours 01/05/19 03:00 Urine Culture - Final Urine,Catheterized Assessment and Plan (1) Small bowel obstruction Narrative/Plan: * POD#1 exploratory laparotomy with lysis of adhesion and small bowel resection * Afebrile without leukocytosis * Continue supportive therapy with pain medication and anti-emetics * NG tube to low intermittent suction * Continue empiric IV antibiotics with Zosyn Current Visit: Yes Status: Acute Code(s): K56.609 - UNSP INTESTNL OBST, UNSP TO PARTIAL VERSUS COMPLETE OBST SNOMED Code(s): 597584132 (2) Hypokalemia Narrative/Plan: * Likely secondary to small bowel obstruction GI loss patient's intractable nausea vomiting and NG tube in place * Continue to replete the potassium currently on replacement protocol Current Visit: Yes Status: Resolved Code(s): E87.6 - HYPOKALEMIA SNOMED Code(s): 85814783 (3) Hypomagnesemia Narrative/Plan: * Secondary to GI loss * Now resolved after being replaced * Current Visit: Yes Status: Resolved Code(s): E83.42 - HYPOMAGNESEMIA SNOMED Code(s): 625982370 (4) Metabolic encephalopathy Narrative/Plan: * The family at bedside reporting improved cognition * Multifactorial secondary to small bowel obstruction with severe electrolyte derangements/abnormalities * CT of the head negative for any acute intracranial pathology only mild global parenchymal volume loss * Vitamin B12 deficient, RPR negative , EEG abnormal * Appreciate neurology recommendations Current Visit: Yes Status: Resolved Code(s): G93.41 - METABOLIC ENCEPHALOPATHY SNOMED Code(s): 98794262 (5) Type 2 diabetes mellitus with hyperglycemia Narrative/Plan: * Blood sugars elevated but are stable * Continue to monitor with Accu-Cheks and correctional scale insulin coverage Current Visit: Yes Status: Acute Code(s): E11.65 - TYPE 2 DIABETES MELLITUS WITH HYPERGLYCEMIA SNOMED Code(s): 306411539555180 (6) Essential hypertension Narrative/Plan: * Nothing by mouth but blood pressure stable and controlled * We'll continue to monitor Current Visit: Yes Status: Chronic Code(s): I10 - ESSENTIAL (PRIMARY) HYPERTENSION SNOMED Code(s): 14241873 (7) Vitamin B12 deficiency Narrative/Plan: * Patient initiated on replacement Current Visit: Yes Status: Chronic Code(s): E53.8 - DEFICIENCY OF OTHER SPECIFIED B GROUP VITAMINS SNOMED Code(s): 239217191 (8) Normocytic anemia due to blood loss Narrative/Plan: * Hemoglobin down approximately 2 g to 10.3 * we'll continue to monitor likely acute blood loss postoperatively * will order iron studies and stool Hemoccult Current Visit: Yes Status: Acute Code(s): D50.0 - IRON DEFICIENCY ANEMIA SECONDARY TO BLOOD LOSS (CHRONIC) SNOMED Code(s): 180775157 Plan: Disposition * Continue current regimen will await resumption of bowel function * Continue to follow closely
--- NOTE | 2019-01-07 11:41 | P.PN ---
Subjective Progress Note Date: 01/07/19 CHIEF COMPLAINT: Small bowel obstruction HISTORY OF PRESENT ILLNESS: The patient is a 63-year-old female postop day 1 status post lysis of adhesions with small bowel resection, 01/06/2019. Her family is at bedside. Pain is minimal with her epidural. She reports moderate thirst. No flatus. ROS: No reports of nausea and vomiting. No bowel movements. No fevers or chills. No new chest pain. No productive sputum PHYSICAL EXAM: VITAL SIGNS: Reviewed CONSTITUTIONAL: Well developed and in no acute distress. EYES: Conjuctivae without sclera icterus. Extraocular movements grossly intact. HEAD, EARS, NOSE, THROAT: Dry buccal mucosa. Head is atraumatic, normocephalic. Hears conversational speech. No nasal drainage. RESPIRATORY: Non-labored respirations and equal bilateral excursions. CARDIOVASCULAR: Palpable 2+ radial pulses. Regular rate. Regular rhythm. ABDOMEN: Incisions clean dry and intact. Soft. No peritonitis. MUSCULOSKELETAL: No gross deformity of the lower extremities noted. No clubbing. No cyanosis. SKIN: Good skin turgor. Well perfused. NEUROLOGIC: Cranial nerves I through XII grossly intact. No focal or lateralizing signs. PSYCH: Appropriate affect. Alert and oriented to person, place and time. CLINCAL LABS: White blood cell count normal. Hemoglobin 10.3 ASSESSMENT: 1. Small bowel obstruction PLAN: 1. Await bowel function 2. May have ice chips. 3. Ambulation advised for passage of flatus Objective - Vital Signs Vital signs: Vital Signs Temp 98.1 F 01/07/19 08:04 Pulse 82 01/07/19 08:04 Resp 16 01/07/19 08:04 BP 115/64 01/07/19 08:04 Pulse Ox 92 L 01/07/19 08:04 Intake & Output 01/06/19 01/07/19 01/07/19 18:59 06:59 18:59 Intake Total 1100 Output Total 170 375 Balance 930 -375 Weight 68.5 kg Intake: IV 1100 Output: Urine 150 375 Estimated Blood Loss 20 Other: Voiding Method Indwelling Catheter Indwelling Catheter Indwelling Catheter # Voids 0 - Labs CBC & Chem 7: 01/07/19 06:52 01/07/19 06:52 Labs: Abnormal Lab Results - Last 24 Hours (Table) 0901/06/19 01/06/19 Range/Units 11:48 16:58 20:28 RBC (3.80-5.40) m/uL Hgb (11.4-16.0) gm/dL Hct (34.0-46.0) % Lymphocytes # (Manual) (1.0-4.8) k/uL Metamyelocytes # (Man) (0) k/uL Chloride (98-107) mmol/L BUN (7-17) mg/dL Creatinine (0.52-1.04) mg/dL Glucose (74-99) mg/dL POC Glucose (mg/dL) 149 H 150 H 148 H (75-99) mg/dL Calcium (8.4-10.2) mg/dL 01/07/19 01/07/19 01/07/19 Range/Units 06:10 06:52 06:52 RBC 3.47 L (3.80-5.40) m/uL Hgb 10.3 L (11.4-16.0) gm/dL Hct 32.0 L (34.0-46.0) % Lymphocytes # (Manual) 0.43 L (1.0-4.8) k/uL Metamyelocytes # (Man) 0.05 H (0) k/uL Chloride 108 H (98-107) mmol/L BUN 33 H (7-17) mg/dL Creatinine 1.10 H (0.52-1.04) mg/dL Glucose 128 H (74-99) mg/dL POC Glucose (mg/dL) 138 H (75-99) mg/dL Calcium 7.4 L (8.4-10.2) mg/dL Microbiology - Last 24 Hours (Table) 01/05/19 00:34 Blood Culture - Preliminary Blood No Growth after 48 hours 01/04/19 23:05 Blood Culture - Preliminary Blood No Growth after 48 hours 01/05/19 03:00 Urine Culture - Final Urine,Catheterized Assessment and Plan (1) Small bowel obstruction Current Visit: Yes Status: Acute Code(s): K56.609 - UNSP INTESTNL OBST, UNSP TO PARTIAL VERSUS COMPLETE OBST SNOMED Code(s): 985525511
[2019-01-07 12:05] LABS: Glucose,Whole Blood 108 mg/dL (75-99)
--- NOTE | 2019-01-07 12:46 | P.PN ---
Progress Note - Text Progress Note Date: 01/07/19 63-year-old female POD#1 exploratory laparotomy with lysis of adhesion and small bowel resection with thoracic epidural catheter. VAS between 2-4-10 in severity. Current rate is 8 ML's an hour of ropivacaine morphine solution. Nonambulatory at the moment, denies any nausea or vomiting. Patient currently on once daily Lovenox for prophylaxis. Continue epidural settings at current rate. Please contact anesthesia prior to removal of epidural catheter secondary to anticoagulation.
[2019-01-07] MEDS ORDERED: SODIUM CHLORIDE 0.9% 1,000 ML IV ONE (13:49)
[2019-01-07 17:04] LABS: Glucose,Whole Blood 94 mg/dL (75-99)
[2019-01-07] MEDS: SODIUM CHLORIDE 0.9% 1,000 ML IV SCH (17:06)
[2019-01-07 17:24] LABS: Iron Saturation 2.63 (12.00-45.00)
[2019-01-07 20:15] LABS: Glucose,Whole Blood 102 mg/dL (75-99)
[2019-01-08] MEDS: PIPERACILLIN-TAZOBACTAM 3.375 GM in SODIUM CHLORIDE 0.9% 100 ML IVPB SCH ×3 (03:29→21:01)
[2019-01-08] MEDS: SODIUM CHLORIDE 0.9% 1,000 ML IV SCH ×3 (03:30→21:02)
[2019-01-08 06:21] LABS: Basophils % (A) 0 %; Eosinophils % (A) 1 %; HCT 28.1 % (34.0-46.0); HGB 8.9 gm/dL (11.4-16.0); Lymphocytes # (A) 0.4 k/uL (1.0-4.8); Lymphocytes % (A) 7 %; MCH 29.3 pg (25.0-35.0); MCHC 31.5 g/dL (31.0-37.0); Mean Platelet Volume 8.4; Monocytes # (A) 0.2 k/uL (0-1.0); Monocytes % (A) 4 %; Neutrophils # (A) 5.1 k/uL (1.3-7.7); Neutrophils % (A) 87 %; Platelet Count 185 k/uL (150-450); RBC 3.02 m/uL (3.80-5.40); RDW 13.4 % (11.5-15.5); WBC 5.9 k/uL (3.8-10.6)
[2019-01-08 06:29] LABS: Glucose,Whole Blood 99 mg/dL (75-99)
[2019-01-08] MEDS: INSULIN ASPART (NovoLOG) 100 UNIT/ML VIAL SQ SCH ×4 (06:29→20:59)
[2019-01-08 06:39] LABS: Calcium 7.8 mg/dL (8.4-10.2); Potassium 3.7 mmol/L (3.5-5.1)
[2019-01-08] MEDS: PANTOPRAZOLE 40 MG/10 ML VIAL IV SCH (08:26)
[2019-01-08] MEDS: ENOXAPARIN 40 MG/0.4 ML SYRINGE SQ SCH (08:26)
--- NOTE | 2019-01-08 11:04 | P.PN ---
Subjective Progress Note Date: 01/08/19 Patient seen and examined and follow up, was sleeping well, does complain of some abdominal tenderness over her incision. POD #2 exploratory laparotomy with lysis of adhesion and small bowel resection Abdominal binder and NG tube in place, patient denying any passing gas. Epidural in place. Has not been up and ambulatory. Hemoglobin down to 8.9 satisfactory oxygen saturation 92% on room air. Vitamin B12 levels are diminished started on supplementation yesterday. CT of the head Suggesting mild diffuse cerebral dysfunction. No acute events overnight Objective - Vital Signs Vital signs: Vital Signs Temp 98.3 F 01/08/19 08:29 Pulse 80 01/08/19 08:29 Resp 16 01/08/19 08:29 BP 134/68 01/08/19 08:29 Pulse Ox 94 L 01/08/19 08:29 Intake & Output 01/07/19 01/08/19 01/08/19 18:59 06:59 18:59 Output Total 1100 Balance -1100 Weight 70.5 kg Output: Urine 1100 Other: Voiding Method Indwelling Catheter Indwelling Catheter Indwelling Catheter - Exam Constitutional: No acute distress, conversant, pleasant Eyes: Anicteric sclerae, moist conjunctiva, no lid-lag, PERRLA ENMT: NC/AT,Oropharynx clear, no erythema, exudates, NG tube in place Neck:Supple, FROM, no masses, or JVD, No carotid bruits; No thyromegaly Lungs: Clear to auscultation, Clear to percussion, Normal respiratory effort, no accessory muscle use Cardiovascular: Heart regular in rate and rhythm, No murmurs, gallops, or rubs no peripheral edema Abdominal: Soft tender to palpation, over incision , no bowel sounds, dressing clean dry and intact, abdominal binder in place Skin: Normal temperature, tone, texture, turgor, No induration No subcutaneous nodules, No rash, lesions, No ulcers Extremities:No digital cyanosis No clubbing, Pedal pulses intact and sym metrical Radial pulses intact and symmetrical Normal gait and station, No calf tenderness Psychiatric: Alert and oriented to person, place and time, Appropriate affect Intact judgement Neuro: Muscles Strength 5/5 in all 4 extremities, Sensation to light touch grossly present throughout, Cranial nerves II-XII grossly intact. No focal sensory deficits - Labs CBC & Chem 7: 01/08/19 06:09 01/08/19 06:09 Labs: Abnormal Lab Results - Last 24 Hours (Table) 01/07/19 01/07/19 01/07/19 Range/Units 06:52 12:03 20:11 RBC (3.80-5.40) m/uL Hgb (11.4-16.0) gm/dL Hct (34.0-46.0) % Lymphocytes # (1.0-4.8) k/uL Chloride (98-107) mmol/L Carbon Dioxide (22-30) mmol/L BUN (7-17) mg/dL Glucose (74-99) mg/dL POC Glucose (mg/dL) 108 H 102 H (75-99) mg/dL Calcium (8.4-10.2) mg/dL Iron 6 L (50-170) ug/dL Iron Saturation 2.63 L (12.00-45.00) 01/08/19 01/08/19 Range/Units 06:09 06:09 RBC 3.02 L (3.80-5.40) m/uL Hgb 8.9 L (11.4-16.0) gm/dL Hct 28.1 L (34.0-46.0) % Lymphocytes # 0.4 L (1.0-4.8) k/uL Chloride 112 H (98-107) mmol/L Carbon Dioxide 21 L (22-30) mmol/L BUN 27 H (7-17) mg/dL Glucose 104 H (74-99) mg/dL POC Glucose (mg/dL) (75-99) mg/dL Calcium 7.8 L (8.4-10.2) mg/dL Iron (50-170) ug/dL Iron Saturation (12.00-45.00) Microbiology - Last 24 Hours (Table) 01/05/19 00:34 Blood Culture - Preliminary Blood No Growth after 72 hours 01/04/19 23:05 Blood Culture - Preliminary Blood No Growth after 72 hours Assessment and Plan (1) Small bowel obstruction Narrative/Plan: * POD#1 exploratory laparotomy with lysis of adhesion and small bowel resection * Afebrile without leukocytosis * Continue supportive therapy with pain medication and anti-emetics * NG tube to low intermittent suction * Continue empiric IV antibiotics with Zosyn Current Visit: Yes Status: Acute Code(s): K56.609 - UNSP INTESTNL OBST, UNSP TO PARTIAL VERSUS COMPLETE OBST SNOMED Code(s): 221254691 (2) Hypokalemia Narrative/Plan: * Likely secondary to small bowel obstruction GI loss patient's intractable nausea vomiting and NG tube in place * Continue to replete the potassium currently on replacement protocol Current Visit: Yes Status: Resolved Code(s): E87.6 - HYPOKALEMIA SNOMED Code(s): 18133649 (3) Hypomagnesemia Narrative/Plan: * Secondary to GI loss * Now resolved after being replaced * Current Visit: Yes Status: Resolved Code(s): E83.42 - HYPOMAGNESEMIA SNOMED Code(s): 310894261 (4) Metabolic encephalopathy Narrative/Plan: * The family at bedside reporting improved cognition * Multifactorial secondary to small bowel obstruction with severe electrolyte derangements/abnormalities * CT of the head negative for any acute intracranial pathology only mild global parenchymal volume loss * Vitamin B12 deficient, RPR negative , EEG abnormal * Appreciate neurology recommendations Current Visit: Yes Status: Resolved Code(s): G93.41 - METABOLIC ENCEPHALOPATHY SNOMED Code(s): 05986971 (5) Type 2 diabetes mellitus with hyperglycemia Narrative/Plan: * Blood sugars elevated but are stable * Continue to monitor with Accu-Cheks and correctional scale insulin coverage Current Visit: Yes Status: Resolved Code(s): E11.65 - TYPE 2 DIABETES MELLITUS WITH HYPERGLYCEMIA SNOMED Code(s): 620150809705286 (6) Essential hypertension Narrative/Plan: * Nothing by mouth but blood pressure stable and controlled * We'll continue to monitor Current Visit: Yes Status: Chronic Code(s): I10 - ESSENTIAL (PRIMARY) HYPERTENSION SNOMED Code(s): 93857463 (7) Vitamin B12 deficiency Narrative/Plan: * Patient initiated on replacement Current Visit: Yes Status: Chronic Code(s): E53.8 - DEFICIENCY OF OTHER SPECIFIED B GROUP VITAMINS SNOMED Code(s): 119423377 (8) Normocytic anemia due to blood loss Narrative/Plan: * Hemoglobin down approximately 2 g to 10.3 * we'll continue to monitor likely acute blood loss postoperatively * will order iron studies and stool Hemoccult Current Visit: Yes Status: Acute Code(s): D50.0 - IRON DEFICIENCY ANEMIA SECONDARY TO BLOOD LOSS (CHRONIC) SNOMED Code(s): 442440011 Plan: Disposition * Continue current regimen will await resumption of bowel function * Continue to follow closely
[2019-01-08 12:15] LABS: Glucose,Whole Blood 116 mg/dL (75-99)
--- NOTE | 2019-01-08 13:36 | P.PN ---
Subjective Progress Note Date: 01/08/19 CHIEF COMPLAINT: Small bowel obstruction HISTORY OF PRESENT ILLNESS: The patient is a 63-year-old female postop day 2 status post lysis of adhesions with small bowel resection, 01/06/2019. Her is at bedside. She reports feeling unsteady as she has laid in her bed most of the time. She is now sitting up in a chair. She is tolerating ice chips. Nasogastric tube bilious. ROS: No reports of nausea and vomiting. No bowel movements. No fevers or chills. No new chest pain. No productive sputum PHYSICAL EXAM: VITAL SIGNS: Reviewed CONSTITUTIONAL: Well developed and in no acute distress. EYES: Conjuctivae without sclera icterus. Extraocular movements grossly intact. HEAD, EARS, NOSE, THROAT: Dry buccal mucosa. Head is atraumatic, normocephalic. Hears conversational speech. No nasal drainage. NG tube present RESPIRATORY: Non-labored respirations and equal bilateral excursions. CARDIOVASCULAR: Palpable 2+ radial pulses. Regular rate. Regular rhythm. ABDOMEN: Incisions clean dry and intact. No peritonitis. MUSCULOSKELETAL: No gross deformity of the lower extremities noted. No clubbing. No cyanosis. SKIN: Good skin turgor. Well perfused. NEUROLOGIC: Cranial nerves I through XII grossly intact. No focal or lateralizing signs. PSYCH: Appropriate affect. Alert and oriented to person, place and time. CLINCAL LABS: White blood cell count normal. Hemoglobin down from 10.3 to 8.9 ASSESSMENT: 1. Small bowel obstruction PLAN: 1. Await bowel function 2. Add popsicles 3. Epidural to be discontinued per hospital protocol 4. Ambulation encouraged Objective - Vital Signs Vital signs: Vital Signs Temp 98.3 F 01/08/19 08:29 Pulse 80 01/08/19 08:29 Resp 16 01/08/19 08:29 BP 134/68 01/08/19 08:29 Pulse Ox 94 L 01/08/19 08:29 Intake & Output 01/07/19 01/08/19 01/08/19 18:59 06:59 18:59 Output Total 1100 Balance -1100 Weight 70.5 kg Output: Urine 1100 Other: Voiding Method Indwelling Catheter Indwelling Catheter Indwelling Catheter - Labs CBC & Chem 7: 01/08/19 06:09 01/08/19 06:09 Labs: Abnormal Lab Results - Last 24 Hours (Table) 01/07/19 01/07/19 01/07/19 Range/Units 06:52 12:03 20:11 RBC (3.80-5.40) m/uL Hgb (11.4-16.0) gm/dL Hct (34.0-46.0) % Lymphocytes # (1.0-4.8) k/uL Chloride (98-107) mmol/L Carbon Dioxide (22-30) mmol/L BUN (7-17) mg/dL Glucose (74-99) mg/dL POC Glucose (mg/dL) 108 H 102 H (75-99) mg/dL Calcium (8.4-10.2) mg/dL Iron 6 L (50-170) ug/dL Iron Saturation 2.63 L (12.00-45.00) 01/08/19 01/08/19 Range/Units 06:09 06:09 RBC 3.02 L (3.80-5.40) m/uL Hgb 8.9 L (11.4-16.0) gm/dL Hct 28.1 L (34.0-46.0) % Lymphocytes # 0.4 L (1.0-4.8) k/uL Chloride 112 H (98-107) mmol/L Carbon Dioxide 21 L (22-30) mmol/L BUN 27 H (7-17) mg/dL Glucose 104 H (74-99) mg/dL POC Glucose (mg/dL) (75-99) mg/dL Calcium 7.8 L (8.4-10.2) mg/dL Iron (50-170) ug/dL Iron Saturation (12.00-45.00) Microbiology - Last 24 Hours (Table) 01/05/19 00:34 Blood Culture - Preliminary Blood No Growth after 72 hours 01/04/19 23:05 Blood Culture - Preliminary Blood No Growth after 72 hours Assessment and Plan (1) Small bowel obstruction Current Visit: Yes Status: Acute Code(s): K56.609 - UNSP INTESTNL OBST, UNSP TO PARTIAL VERSUS COMPLETE OBST SNOMED Code(s): 489679560
--- NOTE | 2019-01-08 14:49 | P.PN ---
Progress Note - Text Progress Note Date: 01/08/19 63-year-old female POD#2 exploratory laparotomy with lysis of adhesion and small bowel resection with thoracic epidural catheter. VAS between 2-4-10 in severity. Current rate is 8 ML's an hour of ropivacaine morphine solution. Nonambulatory at the moment, denies any nausea or vomiting. Patient currently on once daily Lovenox for prophylaxis. Continue epidural settings at current rate. Patient is on subcu Lovenox for prophylaxis. Epidural catheter can be removed 12 hours after the last dose. Must wait 12 hours for the subsequent dose. Please contact anesthesia prior to removing epidural catheter.
[2019-01-08 16:56] LABS: Glucose,Whole Blood 129 mg/dL (75-99)
[2019-01-08 20:05] LABS: Glucose,Whole Blood 118 mg/dL (75-99)
[2019-01-09] MEDS: PIPERACILLIN-TAZOBACTAM 3.375 GM in SODIUM CHLORIDE 0.9% 100 ML IVPB SCH ×3 (02:53→19:52)
[2019-01-09] MEDS: SODIUM CHLORIDE 0.9% 1,000 ML IV SCH ×2 (02:53→14:48)
[2019-01-09 06:01] LABS: Glucose,Whole Blood 94 mg/dL (75-99)
[2019-01-09 06:20] LABS: Basophils % (A) 1 %; Eosinophils # (A) 0.1 k/uL (0-0.7); Eosinophils % (A) 1 %; HCT 28.3 % (34.0-46.0); Lymphocytes # (A) 0.6 k/uL (1.0-4.8); Lymphocytes % (A) 12 %; MCH 29.8 pg (25.0-35.0); MCHC 31.9 g/dL (31.0-37.0); MCV 93.5 fL (80.0-100.0); Mean Platelet Volume 7.7; Monocytes # (A) 0.2 k/uL (0-1.0); Monocytes % (A) 5 %; Neutrophils % (A) 80 %; Platelet Count 208 k/uL (150-450); RBC 3.03 m/uL (3.80-5.40); RDW 13.8 % (11.5-15.5)
[2019-01-09] MEDS: INSULIN ASPART (NovoLOG) 100 UNIT/ML VIAL SQ SCH ×4 (06:22→21:51)
[2019-01-09 06:31] LABS: African American GFR (CKD) >90 (>60 ml/min/1.73 sqM); Anion Gap 9 mmol/L; Blood Urea Nitrogen 20 mg/dL (7-17); Calcium 8.7 mg/dL (8.4-10.2); Carbon Dioxide 21 mmol/L (22-30); Chloride 112 mmol/L (98-107); Glucose 94 mg/dL (74-99); Potassium 3.4 mmol/L (3.5-5.1); Sodium 142 mmol/L (137-145)
--- NOTE | 2019-01-09 06:41 | P.PN ---
Progress Note - Text Progress Note Date: 01/09/19 63-year-old female POD#3 exploratory laparotomy with lysis of adhesion and small bowel resection with thoracic epidural catheter. VAS between 2-4-10 in severity. Current rate is 8 ML's an hour of ropivacaine morphine solution. Nonambulatory at the moment, denies any nausea or vomiting. Patient currently on once daily Lovenox for prophylaxis. We'll discontinue epidural catheter today. I informed them nurse not to give morning Lovenox dose and to remove epidural catheter. His pain greater than 12 hours since her last dose. I instructed him to wait 12 hours for her to receive her daily dose today.
[2019-01-09] MEDS: ENOXAPARIN 40 MG/0.4 ML SYRINGE SQ SCH (08:01)
[2019-01-09] MEDS: PANTOPRAZOLE 40 MG/10 ML VIAL IV SCH (09:52)
--- NOTE | 2019-01-09 11:38 | P.PN ---
Subjective Progress Note Date: 01/09/19 CHIEF COMPLAINT: Abdominal pain HISTORY OF PRESENT ILLNESS: Patient is status post exploratory laparotomy, lysis of adhesions, and small bowel resection. Postop day #3. Patient examined at the bedside. Spouse present. Epidural has been discontinued this morning. Patient denies pain at this time. She denies passing flatus. No bowel movement. NG to low intermittent suction. PHYSICAL EXAM: VITAL SIGNS: Reviewed. GENERAL: Well-developed in no acute distress. HEENT: NG to LIS. No sclera icterus. Extraocular movements grossly intact. Moist buccal mucosa. Head is atraumatic, normocephalic. ABDOMEN: Soft. Nondistended. Appropriate surgical tenderness. Dressing intact. NEUROLOGIC: Awake and alert ASSESSMENT: 1. Abdominal pain 2. Small bowel obstruction, status post exploratory laparotomy, lysis of adhesions, and small bowel resection 3. History of Uriah fundoplication and lysis of adhesions, April 2018 PLAN: 1. Discontinue NG tube 2. Continue ice chips and popsicles until patient begins passing flatus 3. Epidural DC this morning. Pain control with IV morphine or PO ultram 4. Discontinue king catheter 5. Incentive spirometer 6. Activity as tolerated. Patient must be out of bed at a minimum of three days per day. PT/OT on consult 7. OK to transfer to surgical floor ([address] [place] [address]) Nurse practitioner note has been reviewed by physician. Signing provider agrees with the documented findings, assessment, and plan of care. Objective - Vital Signs Vital signs: Vital Signs Temp 98.5 F 01/09/19 08:00 Pulse 81 01/09/19 08:00 Resp 16 01/09/19 08:00 BP 163/77 01/09/19 08:00 Pulse Ox 97 01/09/19 08:00 Intake & Output 01/08/19 01/09/19 01/09/19 18:59 06:59 18:59 Intake Total 1260 400 Output Total 300 800 390 Balance -300 460 10 Weight 65 kg Intake: IV 1000 400 Sodium Chloride 0.9% 1, 1000 400 000 ml @ 100 mls/hr IV . Q10H [facility] Rx#:[id number] Intake, IV Titration 260 Amount Lactated Ringers 1,000 ml 0 @ 0 mls/hr IV .[facility] Rx#:[id number] Piperacillin-Tazobactam 3 200 .375 gm In Sodium Chloride 0.9% 100 ml @ 25 mls/hr IVPB Q8H [facility] Rx#: [id number] Ropivacaine 400 mg 60 Morphine Sulfate/Pf 12.5 mg In Sodium Chloride 0.9 % 158 ml @ Per Protocol EPIDURAL .Q0M [facility]N Rx#: [id number] Oral 0 Output: Gastric Drainage 140 Urine 300 800 250 Other: Voiding Method Indwelling Catheter Indwelling Catheter Indwelling Catheter - Labs CBC & Chem 7: 01/09/19 05:45 01/09/19 05:45 Labs: Abnormal Lab Results - Last 24 Hours (Table) 01/08/19 01/08/19 01/08/19 Range/Units 12:14 16:54 20:03 RBC (3.80-5.40) m/uL Hgb (11.4-16.0) gm/dL Hct (34.0-46.0) % Lymphocytes # (1.0-4.8) k/uL Potassium (3.5-5.1) mmol/L Chloride (98-107) mmol/L Carbon Dioxide (22-30) mmol/L BUN (7-17) mg/dL POC Glucose (mg/dL) 116 H 129 H 118 H (75-99) mg/dL 01/09/19 01/09/19 Range/Units 05:45 05:45 RBC 3.03 L (3.80-5.40) m/uL Hgb 9.0 L (11.4-16.0) gm/dL Hct 28.3 L (34.0-46.0) % Lymphocytes # 0.6 L (1.0-4.8) k/uL Potassium 3.4 L (3.5-5.1) mmol/L Chloride 112 H (98-107) mmol/L Carbon Dioxide 21 L (22-30) mmol/L BUN 20 H (7-17) mg/dL POC Glucose (mg/dL) (75-99) mg/dL Microbiology - Last 24 Hours (Table) 01/05/19 00:34 Blood Culture - Preliminary Blood No Growth after 96 hours 01/04/19 23:05 Blood Culture - Preliminary Blood No Growth after 96 hours
[2019-01-09 12:01] LABS: Glucose,Whole Blood 110 mg/dL (75-99)
[2019-01-09 12:59] VITALS: BMI 26.2
[2019-01-09] MEDS: LISINOPRIL 20 MG TAB PO SCH (16:19)
[2019-01-09 17:59] LABS: Glucose,Whole Blood 107 mg/dL (75-99)
[2019-01-09] MEDS: traMADol 50 MG TAB PO PRN (19:51)
--- NOTE | 2019-01-09 20:16 | P.PN ---
Subjective Progress Note Date: 01/09/19 (delayed charting seen at 1045) Principal diagnosis: abdominal pain Patient is 63-year-old female with past medical history of hypertension, colon cancer status post colectomy, GERD, dyslipidemia, and osteoarthritis who presented to the emergency department with complaints of confusion and abdominal pain. In the emergency department she underwent an extensive evaluation. On arrival to son have an elevated lactic acid at 5.4, glucose 268, BUN 21, potassium 3.4. Chest x-ray negative. CT head showed no acute process but mild global parenchymal volume loss with chronic microvascular ischemic changes. CT abdomen and pelvis showed dilated fluid-filled loops of sm all bowel with apparent transition point in the right lower quadrant suggestive of small bowel distraction. She was made nothing by mouth, NG tube was placed, just admitted for further monitoring. General surgery was consulted. She ultimately underwent lysis of adhesion on 01/06/19. She was found to be anemic and ultimately found to have vitamin B12 deficiency with a B12 level 195. Due to her altered mentation cyst seen by neurology who felt this was secondary to a metabolic process. She underwent an EEG which was consistent with metabolic derangement. NG tube discontinued on 12/30. Patient seen and examined at bedside. She denies any abdominal pain, still no flatus, no bowel movement, abdominal pain is minimal. Denies any chest pain or shortness of breath. Objective - Vital Signs Vital signs: Vital Signs Temp 98.4 F 01/09/19 15:00 Pulse 76 01/09/19 15:00 Resp 16 01/09/19 15:00 BP 192/84 01/09/19 15:00 Pulse Ox 98 01/09/19 15:00 Intake & Output 01/09/19 01/09/19 01/10/19 06:59 18:59 06:59 Intake Total 1260 1000 Output Total 800 1190 Balance 460 -190 Weight 65 kg 65 kg Intake: IV 1000 900 Sodium Chloride 0.9% 1, 1000 900 000 ml @ 100 mls/hr IV . Q10H [facility] Rx#:[id number] Intake, IV Titration 260 100 Amount Lactated Ringers 1,000 ml 0 @ 0 mls/hr IV [facility] Rx#:[id number] Piperacillin-Tazobactam 3 200 100 .375 gm In Sodium Chloride 0.9% 100 ml @ 25 mls/hr IVPB Q8H [facility] Rx#: [id number] Ropivacaine 400 mg 60 Morphine Sulfate/Pf 12.5 mg In Sodium Chloride 0.9 % 158 ml @ Per Protocol EPIDURAL .Q0M [facility] Rx#: [id number] Oral 0 Output: Gastric Drainage 140 Urine 800 1050 Uretheral ([place]) 400 Other: Voiding Method Indwelling Catheter Toilet - Exam General: ill appearing, no distress, appears older than stated age Derm: warm, dry Head: atraumatic, normocephalic, symmetric Eyes: EOMI, no lid lag, anicteric sclera Mouth: no lip lesion, mucus membranes moist Cardiovascular: S1S2 reg, no murmur, positive posterior tibial pulse bilateral, Lungs: decreased breath sounds bilateral, no rhonchi, no rales , no accessory muscle use Abdominal: soft, nontender to palpation, no guarding, no appreciable organomegaly Ext: no gross muscle atrophy, no edema, no contractures Neuro: CN II-XI grossly intact, no focal neuro deficits Psych: Alert, oriented, appropriate affect - Labs CBC & Chem 7: 01/09/19 05:45 01/09/19 05:45 Labs: Abnormal Lab Results - Last 24 Hours (Table) 01/08/19 01/09/19 01/09/19 Range/Units 20:03 05:45 05:45 RBC 3.03 L (3.80-5.40) m/uL Hgb 9.0 L (11.4-16.0) gm/dL Hct 28.3 L (34.0-46.0) % Lymphocytes # 0.6 L (1.0-4.8) k/uL Potassium 3.4 L (3.5-5.1) mmol/L Chloride 112 H (98-107) mmol/L Carbon Dioxide 21 L (22-30) mmol/L BUN 20 H (7-17) mg/dL POC Glucose (mg/dL) 118 H (75-99) mg/dL 01/09/19 01/09/19 Range/Units 11:59 17:58 RBC (3.80-5.40) m/uL Hgb (11.4-16.0) gm/dL Hct (34.0-46.0) % Lymphocytes # (1.0-4.8) k/uL Potassium (3.5-5.1) mmol/L Chloride (98-107) mmol/L Carbon Dioxide (22-30) mmol/L BUN (7-17) mg/dL POC Glucose (mg/dL) 110 H 107 H (75-99) mg/dL Microbiology - Last 24 Hours (Table) 01/05/19 00:34 Blood Culture - Preliminary Blood No Growth after 96 hours 01/04/19 23:05 Blood Culture - Preliminary Blood No Growth after 96 hours Assessment and Plan Assessment: Small bowel obstruction status post lysis of adhesion -NGT discontinued by general surgery -Nothing by mouth -Await return of bowel function -Antiemetics and pain control Vitamin B12 deficiency -Supplementation - repeat levels in 12 weeks Diabetes mellitus type 2 -Actos on hold -Sliding-scale insulin, follow blood sugars Anemia, likely acute blood loss - Anticipated outcome of Surgery -Also vitamin B12 deficiency -Follow CBC -Supportive care Chronic kidney disease stage III Hypertension - lisinopril Dyslipidemia - resume statin on discharge. GERD - protonix Toxic metabolic encephalopathy, resolved Hypokalemia, resolved Lactic acidosis, resolved DVT prophylaxis: Lovenox Discussed with: Patient, , nursing Anticipated discharge: 1-[address]: home A total of 35 minutes was spent on the care of this complex patient more than 50% of the time was spent in counseling and care coordination.
[2019-01-09 21:28] LABS: Glucose,Whole Blood 91 mg/dL (75-99)
[2019-01-10] MEDS ORDERED: Potassium Replacement Protocol 1 EACH MISC MISCELLANE PRN (00:32)
[2019-01-10] MEDS: SODIUM CHLORIDE 0.9% 1,000 ML IV SCH ×3 (00:40→20:30)
[2019-01-10] MEDS: amLODIPine 10 MG TAB PO SCH ×2 (00:42→08:25)
[2019-01-10] MEDS: POTASSIUM CHLORIDE ER 20 MEQ TAB.ER PO SCH ×4 (00:44→09:39)
[2019-01-10] MEDS: PIPERACILLIN-TAZOBACTAM 3.375 GM in SODIUM CHLORIDE 0.9% 100 ML IVPB SCH ×3 (04:35→20:26)
[2019-01-10 05:49] LABS: HCT 25.8 % (34.0-46.0); HGB 8.5 gm/dL (11.4-16.0); MCH 29.9 pg (25.0-35.0); MCHC 32.9 g/dL (31.0-37.0); Mean Platelet Volume 7.3; Platelet Count 238 k/uL (150-450); RBC 2.84 m/uL (3.80-5.40); RDW 14.1 % (11.5-15.5); WBC 5.3 k/uL (3.8-10.6)
[2019-01-10] MEDS: INSULIN ASPART (NovoLOG) 100 UNIT/ML VIAL SQ SCH ×4 (06:27→20:35)
[2019-01-10 06:43] LABS: Glucose,Whole Blood 82 mg/dL (75-99)
[2019-01-10 06:44] LABS: African American GFR (CKD) >90 (>60 ml/min/1.73 sqM); Anion Gap 7 mmol/L; Blood Urea Nitrogen 12 mg/dL (7-17); Calcium 8.3 mg/dL (8.4-10.2); Carbon Dioxide 27 mmol/L (22-30); Chloride 106 mmol/L (98-107); Glucose 83 mg/dL (74-99); Magnesium 1.1 mg/dL (1.6-2.3); Potassium 2.8 mmol/L (3.5-5.1); Sodium 140 mmol/L (137-145)
[2019-01-10] MEDS: MAGNESIUM SULFATE-D5W PMX 1 GM in DEXTROSE/WATER 1 100ML.BAG IVPB SCH ×3 (07:42→09:51)
[2019-01-10] MEDS: PANTOPRAZOLE 40 MG/10 ML VIAL IV SCH (08:26)
[2019-01-10] MEDS: ENOXAPARIN 40 MG/0.4 ML SYRINGE SQ SCH (08:26)
[2019-01-10] MEDS: LISINOPRIL 20 MG TAB PO SCH (08:27)
[2019-01-10] MEDS: POTASSIUM CHLORIDE 10 MEQ in WATER FOR INJECTION 1 100ML.BAG IVPB SCH ×4 (09:52→13:39)
[2019-01-10 12:05] LABS: Glucose,Whole Blood 100 mg/dL (75-99)
[2019-01-10] MEDS: traMADol 50 MG TAB PO PRN (12:47)
[2019-01-10 14:02] LABS: Magnesium 1.7 mg/dL (1.6-2.3); Potassium 3.3 mmol/L (3.5-5.1)
--- NOTE | 2019-01-10 14:35 | P.PN ---
Subjective Progress Note Date: 01/10/19 CHIEF COMPLAINT: Abdominal pain HISTORY OF PRESENT ILLNESS: Patient is status post exploratory laparotomy, lysis of adhesions, and small bowel resection. Postop day #4. Patient examined at the bedside. Patient reports her abdominal pain is tolerable at this time. She is passing flatus. Denies having a bowel movement. Tolerating clear liquid diet. She is currently sitting in the chair. She reports she has not ambulated in the hallway yesterday or today. PHYSICAL EXAM: VITAL SIGNS: Reviewed. GENERAL: Well-developed in no acute distress. HEENT: NG to LIS. No sclera icterus. Extraocular movements grossly intact. Moist buccal mucosa. Head is atraumatic, normocephalic. ABDOMEN: Soft. Nondistended. Appropriate surgical tenderness. Dressing intact. NEUROLOGIC: Awake and alert. ASSESSMENT: 1. Abdominal pain 2. Small bowel obstruction, status post exploratory laparotomy, lysis of adhesions, and small bowel resection 3. History of Uriah fundoplication and lysis of adhesions, April 2018 PLAN: 1. Clear liquid diet 2. Await BM 3. Pain control 4. Replace potassium and magnesium per protocol 5. Patient states she has not ambulated in the hallways yesterday or today. Spo ke with nursing and stated that patient MUST be ambulated by nursing today as she is a postoperative patient and it is imperative for her recovery and to prevent complications!! 6. Incentive spirometer Nurse practitioner note has been reviewed by physician. Signing provider agrees with the documented findings, assessment, and plan of care. Objective - Vital Signs Vital signs: Vital Signs Temp 98.8 F 01/10/19 11:16 Pulse 93 01/10/19 11:16 Resp 18 01/10/19 11:16 BP 147/67 01/10/19 11:16 Pulse Ox 98 01/10/19 11:16 Intake & Output 01/09/19 01/10/19 01/10/19 18:59 06:59 18:59 Intake Total 1000 480 210 Output Total 1190 Balance -190 480 210 Weight 65 kg 65 kg 65 kg Intake: IV 900 300 Sodium Chloride 0.9% 1, 900 300 000 ml @ 100 mls/hr IV . Q10H [facility] Rx#:[id number] Intake, IV Titration 100 100 Amount Piperacillin-Tazobactam 3 100 100 .375 gm In Sodium Chloride 0.9% 100 ml @ 25 mls/hr IVPB Q8H [facility] Rx#: [id number] Oral 80 210 Output: Gastric Drainage 140 Urine 1050 Uretheral ([place]) 400 Other: Voiding Method Toilet Toilet Toilet # Voids 3 1 - Labs CBC & Chem 7: 01/10/19 05:22 01/10/19 13:17 Labs: Abnormal Lab Results - Last 24 Hours (Table) 01/09/19 01/10/19 01/10/19 Range/Units 17:58 05:22 05:22 RBC 2.84 L (3.80-5.40) m/uL Hgb 8.5 L (11.4-16.0) gm/dL Hct 25.8 L (34.0-46.0) % Potassium 2.8 L (3.5-5.1) mmol/L POC Glucose (mg/dL) 107 H (75-99) mg/dL Calcium 8.3 L (8.4-10.2) mg/dL Magnesium 1.1 L (1.6-2.3) mg/dL 01/10/19 01/10/19 Range/Units 11:50 13:17 RBC (3.80-5.40) m/uL Hgb (11.4-16.0) gm/dL Hct (34.0-46.0) % Potassium 3.3 L (3.5-5.1) mmol/L POC Glucose (mg/dL) 100 H (75-99) mg/dL Calcium (8.4-10.2) mg/dL Magnesium (1.6-2.3) mg/dL Microbiology - Last 24 Hours (Table) 01/05/19 00:34 Blood Culture - Preliminary Blood No Growth after 120 hours 01/04/19 23:05 Blood Culture - Preliminary Blood No Growth after 120 hours
[2019-01-10] MEDS ORDERED: METOCLOPRAMIDE 5 MG/ML 2 ML VIAL IVP STA (14:36)
[2019-01-10 17:10] LABS: Glucose,Whole Blood 130 mg/dL (75-99)
[2019-01-10 20:05] LABS: Glucose,Whole Blood 240 mg/dL (75-99)
--- NOTE | 2019-01-10 20:16 | P.PN ---
Subjective Progress Note Date: 01/10/19 (delayed charting patient seen at 1030) Principal diagnosis: abdominal pain Patient is 63-year-old female with past medical history of hypertension, colon cancer status post colectomy, GERD, dyslipidemia, and osteoarthritis who presented to the emergency department with complaints of confusion and abdominal pain. In the emergency department she underwent an extensive evaluation. On arrival to son have an elevated lactic acid at 5.4, glucose 268, BUN 21, potassium 3.4. Chest x-ray negative. CT head showed no acute process but mild global parenchymal volume loss with chronic microvascular ischemic changes. CT abdomen and pelvis showed dilated fluid-filled loops of small bowel with apparent transition point in the right lower quadrant suggestive of small bowel distraction. She was made nothing by mouth, NG tube was placed, just admitted for further monitoring. General surgery was consulted. She ultimately underwent lysis of adhesion on 01/06/19. She was found to be anemic and ultimately found to have vitamin B12 deficiency with a B12 level 195. Due to her altered mentation cyst seen by neurology who felt this was secondary to a metabolic process. She underwent an EEG which was consistent with metabolic derangement. NG tube discontinued on 01/09. Patient seen and examined at bedside. Tolerating clear liquid diet. No abdominal pain today. Passing flatus, no bowel movement yet. No chest pain or shortness of breath. Objective - Vital Signs Vital signs: Vital Signs Temp 98.5 F 01/10/19 15:00 Pulse 87 01/10/19 15:00 Resp 18 01/10/19 15:00 BP 129/61 01/10/19 15:00 Pulse Ox 99 01/10/19 15:00 Intake & Output 01/10/19 01/10/19 01/11/19 06:59 18:59 06:59 Intake Total 480 2190 Balance 480 2190 Weight 65 kg 65 kg Intake: IV 300 800 Sodium Chloride 0.9% 1, 300 800 000 ml @ 100 mls/hr IV . Q10H [facility] Rx#:[id number] Intake, IV Titration 100 700 Amount Magnesium Sulfate-D5w Pmx 300 1 gm In Dextrose/Water 1 100ml.bag @ 100 mls/hr IVPB Q1H [facility] Rx#: [id number] Piperacillin-Tazobactam 3 100 .375 gm In Sodium Chloride 0.9% 100 ml @ 25 mls/hr IVPB Q8H [facility] Rx#: [id number] Potassium Chloride 10 meq 400 In Water For Injection 1 100ml.bag @ 100 mls/hr IVPB Q1HR [facility] Rx#: [id number] Oral 80 690 Other: Voiding Method Toilet Toilet # Voids 3 1 # Bowel Movements 0 - Exam General: Nontoxic, no distress, appears older than stated age Derm: warm, dry Head: atraumatic, normocephalic, symmetric Eyes: EOMI, no lid lag, anicteric sclera Mouth: no lip lesion, mucus membranes moist Cardiovascular: S1S2 reg, no murmur, positive posterior tibial pulse bilateral, Lungs: decreased breath sounds bilateral, no rhonchi, no rales , no accessory muscle use Abdominal: soft, nontender to palpation, no guarding, no appreciable organo megaly Ext: no gross muscle atrophy, no edema, no contractures Neuro: CN II-XI grossly intact, no focal neuro deficits Psych: Alert, oriented, appropriate affect - Labs CBC & Chem 7: 01/10/19 05:22 01/10/19 13:17 Labs: Abnormal Lab Results - Last 24 Hours (Table) 01/10/19 01/10/19 01/10/19 Range/Units 05:22 05:22 11:50 RBC 2.84 L (3.80-5.40) m/uL Hgb 8.5 L (11.4-16.0) gm/dL Hct 25.8 L (34.0-46.0) % Potassium 2.8 L (3.5-5.1) mmol/L POC Glucose (mg/dL) 100 H (75-99) mg/dL Calcium 8.3 L (8.4-10.2) mg/dL Magnesium 1.1 L (1.6-2.3) mg/dL 01/10/19 01/10/19 01/10/19 Range/Units 13:17 16:46 20:04 RBC (3.80-5.40) m/uL Hgb (11.4-16.0) gm/dL Hct (34.0-46.0) % Potassium 3.3 L (3.5-5.1) mmol/L POC Glucose (mg/dL) 130 H 240 H (75-99) mg/dL Calcium (8.4-10.2) mg/dL Magnesium (1.6-2.3) mg/dL Microbiology - Last 24 Hours (Table) 01/05/19 00:34 Blood Culture - Preliminary Blood No Growth after 120 hours 01/04/19 23:05 Blood Culture - Preliminary Blood No Growth after 120 hours Assessment and Plan Assessment: Small bowel obstruction status post lysis of adhesion -NGT discontinued by general surgery 01/09 -Clear liquid diet -Antiemetics and pain control Vitamin B12 deficiency -Supplementation - repeat levels in 12 weeks Diabetes mellitus type 2 -Actos on hold -Sliding-scale insulin, follow blood sugars Anemia, likely acute blood loss - Anticipated outcome of Surgery -Also vitamin B12 deficiency, replace -Follow CBC -Supportive care Chronic kidney disease stage III - at baseline - avoid additional nephrotoxic agents - follow BMP Hypertension - lisinopril Dyslipidemia - resume statin on discharge. GERD - protonix Toxic metabolic encephalopathy, resolved Hypokalemia, resolved Lactic acidosis, resolved DVT prophylaxis: Lovenox Discussed with: Patient, nursing Anticipated discharge: 1-[address]: home A total of 35 minutes was spent on the care of this complex patient more than 50% of the time was spent in counseling and care coordination.
[2019-01-11] MEDS: CYANOCOBALAMIN 1,000 MCG/ML 1 ML VIAL IM SCH ×2 (04:53→08:42)
[2019-01-11] MEDS: PIPERACILLIN-TAZOBACTAM 3.375 GM in SODIUM CHLORIDE 0.9% 100 ML IVPB SCH ×2 (04:53→12:25)
[2019-01-11] MEDS: SODIUM CHLORIDE 0.9% 1,000 ML IV SCH (04:54)
[2019-01-11 05:58] LABS: Glucose,Whole Blood 93 mg/dL (75-99)
[2019-01-11 06:21] LABS: MCHC 33.5 g/dL (31.0-37.0); MCV 89.4 fL (80.0-100.0); Platelet Count 254 k/uL (150-450); RBC 3.02 m/uL (3.80-5.40); RDW 13.4 % (11.5-15.5); WBC 4.9 k/uL (3.8-10.6)
[2019-01-11 06:33] LABS: African American GFR (CKD) >90 (>60 ml/min/1.73 sqM); Anion Gap 8 mmol/L; Blood Urea Nitrogen 9 mg/dL (7-17); Carbon Dioxide 27 mmol/L (22-30); Chloride 106 mmol/L (98-107); Glucose 94 mg/dL (74-99); Magnesium 1.2 mg/dL (1.6-2.3); Potassium 2.9 mmol/L (3.5-5.1); Sodium 141 mmol/L (137-145)
[2019-01-11] MEDS: INSULIN ASPART (NovoLOG) 100 UNIT/ML VIAL SQ SCH ×2 (06:36→12:25)
[2019-01-11] MEDS: amLODIPine 10 MG TAB PO SCH (08:41)
[2019-01-11] MEDS: ENOXAPARIN 40 MG/0.4 ML SYRINGE SQ SCH (08:41)
[2019-01-11] MEDS: LISINOPRIL 20 MG TAB PO SCH (08:41)
[2019-01-11] MEDS: PANTOPRAZOLE 40 MG/10 ML VIAL IV SCH (08:41)
[2019-01-11 10:33] VITALS: RESP 20
[2019-01-11] MEDS: POTASSIUM CHLORIDE ER 20 MEQ TAB.ER PO SCH ×3 (10:50→14:32)
[2019-01-11] MEDS: MAGNESIUM SULFATE-D5W PMX 1 GM in DEXTROSE/WATER 1 100ML.BAG IVPB SCH ×3 (10:50→14:34)
--- NOTE | 2019-01-11 11:50 | P.DS ---
Providers Date of admission: 01/05/19 00:43 Expected date of discharge: 01/11/19 Attending physician: Tamra Means MD Consults: 01/05/19 00:44 Consult Physician Urgent Consulting Provider: Davi Meyers Consult Reason/Comments: Abdominal pain. Small bowel obstruction. Do you want consulting provider notified?: Yes 01/05/19 11:12 Consult Physician Urgent Consulting Provider: Jackie White Consult Reason/Comments: Mental Status Changes Do you want consulting provider notified?: Yes Primary care physician: [facility] Course: Diagnoses upon discharge: 1. Small bowel obstruction status post lysis of adhesions 2. Vitamin B12 deficiency 3. Diabetes type 2 with hyperglycemia on chronic kidney disease stage III 4. Anemia, acute blood loss and chronic secondary to iron deficiency 5. Chronic kidney disease stage III secondary to diabetes 6. Essential hypertension 7. Hyperlipidemia 8. GERD without esophagitis 9. Toxic metabolic encephalopathy secondary to small bowel obstruction resolved 10. Hypokalemia 11. Lactic acidosis HPI: 63-year-old female with history of hypertension colon cancer status post colectomy 1995, and abdominal adhesiolysis april 2018 Patient was brought into the hospital by her due to confusion and abdominal pain. Patient is unable to provide any meaningful history at this time. Patient was seen in the ICU, patient is alert and awake however confused and seems to be restless in bed. She keeps belching and spitting. Reports nausea and abdominal pain. She is unreliable historian at this point can't give any meaningful history. History obtained by reviewing medical records and talking to the ER staff. Seems like patient was found by her after he came back from work confused and complaining of severe abdominal pain for which she decided to bring her to the hospital. is not available immediately for further history taking. In the ED workup showed elevated lactic acid and hyperglycemia with mild hypokalemia. CT of the abdomen suggested small bowel obstruction. Brain CT was negative for any acute process Gen. surgery was notified recommended conservative management at this time with close monitoring and IV fluid hydration Hospital course and treatment: Patient is 63-year-old female with past medical history of hypertension, colon cancer status post colectomy, GERD, dyslipidemia, and osteoarthritis who presented to the emergency department with complaints of confusion and abdominal pain. In the emergency department she underwent an extensive evaluation. On arrival to son have an elevated lactic acid at 5.4, glucose 268, BUN 21, potassium 3.4. Chest x-ray negative. CT head showed no acute process but mild global parenchymal volume loss with chronic microvascular ischemic changes. CT abdomen and pelvis showed dilated fluid-filled loops of small bowel with apparent transition point in the right lower quadrant suggestive of small bowel distraction. She was made nothing by mouth, NG tube was placed, just admitted for further monitoring. General surgery was consulted. She ultimately underwent lysis of adhesion on 01/06/19. She was found to be anemic and ultimately found to have vitamin B12 deficiency with a B12 level 195. Due to her altered mentation cyst seen by neurology who felt this was secondary to a metabolic process. She underwent an EEG which was consistent with metabolic derangement. NG tube discontinued on 01/09. Patient continued to clinically improve, she was able to tolerate diet prior to discharge. She denies abdominal pain, no bleeding. She was cleared by surgery for discharge. She will be discharged home to follow up as an outpatient. Patient Condition at Discharge: Good Plan - Discharge Summary Discharge Rx Participant: No New Discharge Prescriptions: Continue clonazePAM [KlonoPIN] 0.5 mg PO QAM Ranitidine HCl [Zantac] 300 mg PO QAM metFORMIN HCL 1,000 mg PO DAILY Lovastatin [Mevacor] 40 mg PO HS Lisinopril-Hctz 20-25 mg [Zestoretic 20-25] 1 tab PO QAM Citalopram Hydrobromide [CeleXA] 20 mg PO QAM Pioglitazone [Actos] 30 mg PO DAILY Gabapentin [Neurontin] 600 mg PO DAILY Insulin Glargine [Lantus] 30 unit SQ DAILY Discharge Medication List Citalopram Hydrobromide [CeleXA] 20 mg PO QAM 08/23/15 [History] Lisinopril-Hctz 20-25 mg [Zestoretic 20-25] 1 tab PO QAM 08/23/15 [History] Lovastatin [Mevacor] 40 mg PO HS 08/23/15 [History] Ranitidine HCl [Zantac] 300 mg PO QAM 08/23/15 [History] clonazePAM [KlonoPIN] 0.5 mg PO QAM 08/23/15 [History] metFORMIN HCL 1,000 mg PO DAILY 08/23/15 [History] Gabapentin [Neurontin] 600 mg PO DAILY 05/05/18 [History] Pioglitazone [Actos] 30 mg PO DAILY 05/05/18 [History] Insulin Glargine [Lantus] 30 unit SQ DAILY 01/05/19 [History] Follow up Appointment(s)/Referral(s): [facility], [NON-STAFF] - Laurence Fajardo MD [Primary Care Provider] - 1-2 days Davi Meyers MD [STAFF PHYSICIAN] - 1 Week Patient Instructions/Handouts: Bowel Resection (DC), Lysis of Abdominal Adhesions (DC) Discharge Disposition: HOME SELF-CARE
[2019-01-11 11:55] VITALS: BP 153/75; PULSE 93; TEMP 99
--- NOTE | 2019-01-11 12:11 | P.PN ---
Subjective Progress Note Date: 01/11/19 CHIEF COMPLAINT: Abdominal pain HISTORY OF PRESENT ILLNESS: Patient is status post exploratory laparotomy, lysis of adhesions, and small bowel resection. Postop day #5. Patient examined at the bedside. Patient reports her abdominal pain is tolerable at this time. She is passing flatus. She reports having a bowel movement this morning. Denies nausea or vomiting. Hemoglobin 9.0. Potassium 2.9. Magnesium 1.2. PHYSICAL EXAM: VITAL SIGNS: Reviewed. GENERAL: Well-developed in no acute distress. HEENT: NG to LIS. No sclera icterus. Extraocular movements grossly intact. Moist buccal mucosa. Head is atraumatic, normocephalic. ABDOMEN: Soft. Nondistended. Appropriate surgical tenderness. Dressing intact. NEUROLOGIC: Awake and alert. ASSESSMENT: 1. Abdominal pain 2. Small bowel obstruction, status post exploratory laparotomy, lysis of adhesions, and small bowel resection 3. History of Uriah fundoplication and lysis of adhesions, April 2018 PLAN: Advance diet. Change Optifoam dressing today Replace potassium and magnesium per protocol Patient is adament that she is going home today. She may be discharged home from a surgical standpoint after K and Mag supplementation. Recommend BMP in 2-3 days. Will defer to medicine. Nurse practitioner note has been reviewed by physician. Signing provider agrees with the documented findings, assessment, and plan of care. Objective - Vital Signs Vital signs: Vital Signs Temp 99 F 01/11/19 11:54 Pulse 93 01/11/19 11:54 Resp 20 01/11/19 11:54 BP 153/75 01/11/19 11:54 Pulse Ox 96 01/11/19 11:54 Intake & Output 01/10/19 01/11/19 01/11/19 18:59 06:59 18:59 Intake Total 2190 1340 480 Output Total 800 Balance 2190 540 480 Weight 65 kg 65 kg Intake: IV 800 1100 Sodium Chloride 0.9% 1, 800 1100 000 ml @ 100 mls/hr IV . Q10H [facility] Rx#:[id number] Intake, IV Titration 700 Amount Magnesium Sulfate-D5w Pmx 300 1 gm In Dextrose/Water 1 100ml.bag @ 100 mls/hr IVPB Q1H [facility] Rx#: [id number] Potassium Chloride 10 meq 400 In Water For Injection 1 100ml.bag @ 100 mls/hr IVPB Q1HR [facility] Rx#: [id number] Oral 690 240 480 Output: Urine 800 Other: Voiding Method Toilet Toilet # Voids 1 5 # Bowel Movements 0 0 1 - Labs CBC & Chem 7: 01/11/19 05:24 01/11/19 05:24 Labs: Abnormal Lab Results - Last 24 Hours (Table) 01/10/19 01/10/19 01/10/19 Range/Units 11:50 13:17 16:46 RBC (3.80-5.40) m/uL Hgb (11.4-16.0) gm/dL Hct (34.0-46.0) % Potassium 3.3 L (3.5-5.1) mmol/L POC Glucose (mg/dL) 100 H 130 H (75-99) mg/dL Calcium (8.4-10.2) mg/dL Magnesium (1.6-2.3) mg/dL 01/10/19 01/11/19 01/11/19 Range/Units 20:04 05:24 05:24 RBC 3.02 L (3.80-5.40) m/uL Hgb 9.0 L (11.4-16.0) gm/dL Hct 27.0 L (34.0-46.0) % Potassium 2.9 L (3.5-5.1) mmol/L POC Glucose (mg/dL) 240 H (75-99) mg/dL Calcium 8.0 L (8.4-10.2) mg/dL Magnesium 1.2 L (1.6-2.3) mg/dL Microbiology - Last 24 Hours (Table) 01/05/19 00:34 Blood Culture - Final Blood No Growth after 144 hours 01/04/19 23:05 Blood Culture - Final Blood No Growth after 144 hours
[2019-01-12] MEDS ORDERED: PANTOPRAZOLE 40 MG TABLET PO SCH (09:00)
== END 2019-01-11 14:44 | disposition left against medical advice (07) | DRG 329 ==
LOC: EC 21:24 → 2SICU 01-05 00:43 → 3SCARD 01-05 21:46
PROVIDERS: ADMIT Internal Medicine; ATTEND Internal Medicine
PROC: 0DB80ZZ Excision of Small Intestine, Open Approach (ICD-10-PCS; principal; 2019-01-06 13:30)
DX: K56.50 Intestinal adhesions [bands], unspecified as to partial versus complete obstruction (principal); G92 Toxic encephalopathy; D62 Acute posthemorrhagic anemia; E87.2 Acidosis; F05 Delirium due to known physiological condition; K55.9 Vascular disorder of intestine, unspecified; E11.22 Type 2 diabetes mellitus with diabetic chronic kidney disease; E11.65 Type 2 diabetes mellitus with hyperglycemia; E53.8 Deficiency of other specified B group vitamins; E78.5 Hyperlipidemia, unspecified; E83.42 Hypomagnesemia; E87.6 Hypokalemia; F41.9 Anxiety disorder, unspecified; I12.9 Hypertensive chronic kidney disease with stage 1 through stage 4 chronic kidney disease, or unspecified chronic kidney disease; K21.9 Gastro-esophageal reflux disease without esophagitis; N18.3 Chronic kidney disease, stage 3 (moderate); Z79.4 Long term (current) use of insulin; Z79.82 Long term (current) use of aspirin; Z79.899 Other long term (current) drug therapy; Z80.1 Family history of malignant neoplasm of trachea, bronchus and lung; Z85.038 Personal history of other malignant neoplasm of large intestine; Z88.5 Allergy status to narcotic agent; Z90.49 Acquired absence of other specified parts of digestive tract; Z98.51 Tubal ligation status
CPT/HCPCS: 36415; 70450; 71045; 74177; 80048; 80053; 80306; 81003; 82140; 82607; 82728; 83540; 83550; 83605; 83735; 84132; 84443; 84484; 85025; 85027; 85610; 85730; 86780; 87040; 87086; 88307; 93005; 95816; 96360; 96361; 96365; 99285

== ENCOUNTER → 2019-02-21 | Outpatient (CLI) | payer OTHER ==
[2019-02-21 16:45] LABS: African American GFR (CKD) 78.9 (60.0-200.0); Anion Gap 10.3 mmol/L (4.00-12.00); BUN/Creat Ratio 13.33 Ratio (12.00-20.00); Calcium 8.7 mg/dL (8.7-10.3); Carbon Dioxide 27.7 mmol/L (21.6-31.8); Chol/HDL Ratio 4.17; LDL Cholesterol,Calculated 120.8 mg/dL (0.0-131.0); Potassium 3.8 mmol/L (3.5-5.5); VLDL Calculation 25.2 mg/dL (5.00-40.00)
[2019-02-21 17:40] LABS: Hemoglobin A1C 4.9 % (4.0-6.0)
== END | disposition home or self-care (01) ==
LOC: LABWHC1 09:58
PROVIDERS: ATTEND Internal Medicine
DX: E55.9 Vitamin D deficiency, unspecified (principal); E11.65 Type 2 diabetes mellitus with hyperglycemia
CPT/HCPCS: 36415; 80048; 80061; 82043; 82306; 82570; 83036

== ENCOUNTER → 2021-01-07 | Outpatient (CLI) | payer MEDICARE, OTHER ==
--- NOTE | 2021-01-09 14:05 | MM ---
Reason for exam: screening (asymptomatic). Last mammogram was performed 2 years and 5 months ago. History: Patient is postmenopausal and has history of colon cancer at age 40. Family history of breast cancer in cousin. Physical Findings: A clinical breast exam by your physician is recommended on an annual basis and results should be correlated with mammographic findings. MG 3D Screening Mammo W/Cad Bilateral CC and MLO view(s) were taken. Prior study comparison: August 15, 2018, bilateral MG screening mammo w CAD. October 22, 2017, bilateral MG screening mammo w CAD. August 28, 2015, bilateral MG screening mammo w CAD. There are scattered fibroglandular densities. No significant changes when compared with prior studies. ASSESSMENT: Benign, BI-RAD 2 RECOMMENDATION: Routine screening mammogram of both breasts in 1 year.
== END | disposition home or self-care (01) ==
LOC: RADMAMWWP 12:46
PROVIDERS: ATTEND Family Medicine
DX: Z12.31 Encounter for screening mammogram for malignant neoplasm of breast (principal); Z80.3 Family history of malignant neoplasm of breast
CPT/HCPCS: 77063; 77067

== ENCOUNTER → 2021-04-04 | Outpatient (CLI) | payer MEDICARE, OTHER | END | disposition home or self-care (01) | LOC: LABWHC1 13:40 | PROVIDERS: ATTEND Family Medicine | DX: R05.9 Cough, unspecified (principal); R51.9 Headache, unspecified; J02.9 Acute pharyngitis, unspecified; R53.83 Other fatigue | CPT/HCPCS: 87502; U0003; C9803 ==

== ENCOUNTER → 2022-02-16 | Outpatient (CLI) | payer MEDICARE, OTHER ==
--- NOTE | 2022-02-16 12:58 | CT ---
EXAMINATION TYPE: CT abdomen pelvis wo/w con DATE OF EXAM: 02/16/2022 COMPARISON: 01/04/2019 HISTORY: left sided abdominal pain, hx of colon ca CT DLP: 865.3 mGycm CONTRAST: CT scan of the abdomen and pelvis is performed with Oral Contrast and without and with IV Contrast, p atient injected with 70cc mL of Isovue 300. FINDINGS: LUNG BASES-: No visible nodule. No infiltrate. LIVER/GB: No calcified gallstones. No space occupying hepatic lesion. Biliary tree is of normal ca liber. PANCREAS: No inflammation. No distinct mass. SPLEEN: No splenic enlargement. No lesion seen. ADRENALS: No nodule. No thickening. KIDNEYS/BLADDER: No hydronephrosis. No nephrolithiasis. No distinct renal mass. Urinary bladder g rossly unremarkable. BOWEL: Epigastric clips with hiatal hernia measuring 4 x 4 centimeters. Rectosigmoid colonic resectio n noted with surgical sutures in place. No evidence for recurrent or residual mass. Mild fecal stasis . Remainder of the colon is unremarkable. Small bowel is of normal caliber. The appendix is not visua lized. GENITAL ORGANS: No gross abnormality. LYMPH NODES: No greater than 1cm abdominal or pelvic lymph nodes are appreciated. AORTA: No significant abnormality. OSSEOUS STRUCTURES: No significant abnormality is seen. OTHER: No significant additional abnormality is seen. IMPRESSION: 1. Postoperative changes of the partial rectosigmoid colonic resection without evidence for recurrent or residual disease. No CT evidence to suggest metastatic disease. 2. Hiatal hernia.
== END | disposition home or self-care (01) ==
LOC: RADCTMAIN 10:21
PROVIDERS: ATTEND Family Medicine
DX: R10.32 Left lower quadrant pain (principal); K44.9 Diaphragmatic hernia without obstruction or gangrene
CPT/HCPCS: 82565; 84520; 74178; 36415; Q9967